=== PATIENT | female | born 1940 | race Caucasian/White ===

== ENCOUNTER 2016-04-21 10:30 | Day surgery (SDC) | payer MEDICARE, BC ==
[2016-04-16 11:52] VITALS: BMI 24.5
[2016-04-21] MEDS ORDERED: ceFAZolin 2 GM in SODIUM CHLORIDE 0.9% 100 ML IVPB ONE (10:34)
[2016-04-21] MEDS ORDERED: SODIUM CHLORIDE 0.9% 1,000 ML IV SCH (10:34)
[2016-04-21 11:18] VITALS: RESP 18
[2016-04-21] MEDS ORDERED: fentaNYL (PF) 50 MCG/ML 2 ML AMP IV ONE (12:30)
[2016-04-21] MEDS ORDERED: LIDOCAINE 2% INJ 20 MG/ML SQ ONE (12:30)
[2016-04-21] MEDS ORDERED: ceFAZolin 1,000 MG/50 ML BAG (PMX) IVPB ONE (12:30)
[2016-04-21] MEDS ORDERED: ACETAMINOPHEN TAB 325 MG TAB PO PRN (12:40)
--- NOTE | 2016-04-21 12:46 | P.PCN ---
Date of Procedure: 04/21/16 Preoperative Diagnosis: unexplained syncope Postoperative Diagnosis: The same Procedure(s) Performed: Loop recorder insertion Description of Procedure: This is a 75-year-old female is referred for loop recorder insertion for unexplained syncope. Patient was brought to the lab in a fasting state. She was prepped and draped in the usual fashion. She was given IV fentanyl for sedation. The skin and the fourth intercostal space on the left side was infiltrated with lidocaine. A small incision was made in the skin and reveal XT device was advanced in the usual fashion. Patient tolerated the procedure well. The signal strength was adequate. No immediate complications. The patient remains stable she'll be discharged home in couple hours. Programming: The tachycardia detection is programmed to a rate of 1 54 bpm. The Jorge detection is programmed to 30 beats per minutes the duration of 4 beats. Pauses of 3 seconds or longer programmed for detection. If detection is on. The sensitivity is programmed to 0.035 mV. Final impression: Successful implantation of the reveal XT Plan: Patient will be discharged home later today. Follow-up in the office in one week. Patient will keep the incision dry. She will continue her home medications. Follow-up with Dr. Jones.
[2016-04-21 13:13] VITALS: PULSE 88; TEMP 98.4
[2016-04-21 14:18] VITALS: BP 151/80
== END 2016-04-21 13:40 | disposition home or self-care (01) ==
LOC: CATHEP 10:30
PROVIDERS: ATTEND Internal Medicine Cardiovascular Disease
DX: R55 Syncope and collapse (principal); I10 Essential (primary) hypertension; E78.5 Hyperlipidemia, unspecified; Z79.82 Long term (current) use of aspirin; Z79.899 Other long term (current) drug therapy; Z88.7 Allergy status to serum and vaccine
CPT/HCPCS: 33282; C1764; J2001; J3010; J0690

== ENCOUNTER → 2016-05-21 | Outpatient (CLI) | payer MEDICARE, BC ==
[2016-05-21 11:02] LABS: Anion Gap 15 mmol/L; Blood Urea Nitrogen 17 mg/dL (7-17); Carbon Dioxide 27 mmol/L (22-30); Chloride 105 mmol/L (98-107); Non-African American GFR(MDRD) >60 (>60 ml/min/1.73 sqM); Potassium 4.3 mmol/L (3.5-5.1); Sodium 147 mmol/L (137-145)
[2016-05-21 14:11] LABS: CH 28.4; CHCM 30.6; HCT 52.1 % (34.0-46.0); HDW 2.33; HGB 16.1 gm/dL (11.4-16.0); Hypochromasia Slight; MCH 28.8 pg (25.0-35.0); Mean Platelet Volume 8.2; RDW 13.2 % (11.5-15.5); WBC 6.4 k/uL (3.8-10.6)
== END | disposition home or self-care (01) ==
LOC: LABPAT 10:15
PROVIDERS: ATTEND Internal Medicine Cardiovascular Disease
DX: Z01.812 Encounter for preprocedural laboratory examination (principal); I49.5 Sick sinus syndrome
CPT/HCPCS: 80051; 82565; 84520; 85027

== ENCOUNTER 2016-05-25 06:10 | Day surgery (SDC) | payer MEDICARE, BC ==
[2016-05-22 09:44] VITALS: BMI 24.5
[2016-05-25] MEDS ORDERED: ceFAZolin 2 GM in SODIUM CHLORIDE 0.9% 100 ML IVPB ONE (07:13)
[2016-05-25] MEDS ORDERED: ceFAZolin 1,000 MG in SODIUM CHLORIDE 0.9% IRRIGATIO 250 ML IRRIGATION ONE (07:13)
[2016-05-25] MEDS ORDERED: SODIUM CHLORIDE 0.9% 1,000 ML IV SCH (07:13)
[2016-05-25] MEDS ORDERED: IODIXANOL 320 MG/ML 100 ML IV ONE (07:46)
[2016-05-25] MEDS: fentaNYL (PF) 50 MCG/ML 2 ML AMP IV ONE ×2 (10:40→10:54)
[2016-05-25] MEDS: MIDAZOLAM 2 MG/2 ML VIAL IV ONE ×2 (10:41→10:50)
[2016-05-25] MEDS ORDERED: LIDOCAINE 2% INJ 20 MG/ML SQ ONE ×2 (10:42→10:52)
[2016-05-25] MEDS ORDERED: ACETAMINOPHEN TAB 325 MG TAB PO PRN (11:29)
[2016-05-25] MEDS ORDERED: MECLIZINE 25 MG TAB PO PRN (11:29)
[2016-05-25] MEDS ORDERED: ERGOCALCIFEROL 50,000 UNIT CAP PO SCH (12:00)
--- NOTE | 2016-05-25 12:59 | P.PCN ---
Date of Procedure: 05/25/16 Preoperative Diagnosis: Sick sinus syndrome with history of syncope Postoperative Diagnosis: The same Procedure(s) Performed: Axillary venography and permanent pacemaker implantation, dual-chamber Description of Procedure: HISTORY: This is a 75-year-old female with history of recurrent syncopes which were unexplained. Recently patient had a loop recorder insertion which showed evidence of SVT alternating with bradycardia and pauses up to 3.5 seconds. 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 Patient is evaluated by Dr. Jones. CONSENT:I have discussed the risks, benefits and alternative therapies for the above-mentioned procedure and for both sedation/analgesia as well as necessary blood product administration, if indicated, as they pertain to this patient. The patient has indicated understanding and acceptance of the risks and procedures discussed. PROCEDURE: Patient was brought to the lab in a fasting state. Patient was prepped and draped in the usual fashion. Patient was given IV sedation with fentanyl and Versed. The skin below the left clavicle was infiltrated with lidocaine. An incision was made parallel to deltopectoral groove was deepened until the pectoral fascia was exposed. A pocket was created by blunt dissection and cautery. Axillary venography was performed to delineate the course of the axillary vein. 2 sticks were performed into extrathoracic portion of the axillary vein and 2 sheaths were advanced over the guidewires and left in subclavian vein. LEADS: ATRIAL: This is manufactured by [employer]. Model number is 4479 and serial number is [id number] VENTRICULAR: This is manufactured by [employer]. Model number is 7741 and the serial number is [id number] PULSE GENERATOR: This is manufactured by [employer]. Model number L101. Serial number is [id number] The ventricular lead is maneuvered l with help of a straight and curved stylets into the left ventricle apical region. Satisfactory position was obtained and threshold measurements were made. The atrial lead was then maneuvered into the right atrial appendage. And thresholds were obtained. The ventricular lead is a screw-in lead and atrial lead is a tined lead. THRESHOLDS: ATRIUM: The minimum patient threshold is 0.3 V at pulse width of 0.5 ms. Impedance is 464 ohms. P-wave: 3.1 mV VENTRICLE Nu the minimal patient threshold is 0.4 holes at pulse width of 0.5 ms. Impedance was 1303. R-wave: 10 mV The leads and pulse generator remained in the pocket after it was washed with antibiotics. Pocket was closed in the usual fashion. The fascia was closed with 2-0 Prolene ,the subcutaneous tissue was closed with 3-0 Prolene and the skin was closed with 4-0 Prolene. PROGRAMMING: MODE: DDDR RATE: 60-120 OUTPUT: Atrium: 3.5 at 0.5 ms ventricle: 3.5 V at 0.5 ms FINAL IMPRESSION: #1. Axillary venography #2. Dual-chamber permanent pacemaker implantation COMPLICATIONS: Nil PLAN: Patient will be monitored on the telemetry unit. Prophylactic antibacterial be continued. Chest x-ray in the morning. Pneumonia the loop recorder tomorrow and possible discharge in the afternoon.
[2016-05-25] MEDS: ceFAZolin 2 GM in SODIUM CHLORIDE 0.9% 100 ML IVPB SCH ×2 (16:30→23:19)
[2016-05-25] MEDS: HYDROcodone/APAP 5-325MG 1 EACH TAB PO PRN (18:53)
[2016-05-25] MEDS ORDERED: PANTOPRAZOLE 40 MG TABLET PO SCH (21:00)
[2016-05-26] MEDS: ceFAZolin 2 GM in SODIUM CHLORIDE 0.9% 100 ML IVPB SCH ×2 (05:18→12:25)
[2016-05-26] MEDS: HYDROcodone/APAP 5-325MG 1 EACH TAB PO PRN (05:20)
[2016-05-26 08:24] VITALS: RESP 18
[2016-05-26] MEDS ORDERED: OXYBUTYNIN XL 5 MG TAB.ER.24 PO SCH (09:00)
[2016-05-26] MEDS ORDERED: ATENOLOL 25 MG TAB PO SCH (09:00)
[2016-05-26] MEDS ORDERED: DONEPEZIL 10 MG TAB PO SCH (09:00)
[2016-05-26] MEDS ORDERED: ATORVASTATIN 10 MG TAB PO SCH (09:00)
--- NOTE | 2016-05-26 09:32 | XR ---
EXAMINATION TYPE: XR chest 2V DATE OF EXAM: 05/26/2016 9:27 AM COMPARISON: Chest x-ray March 01, 2016. HISTORY: Arrhythmia status post pacemaker placement. TECHNIQUE: Frontal and lateral views of the chest are obtained. FINDINGS: There is chronic parenchymal change or scarring in both lung bases without suspicious new focal air space opacity, pleural effusion, or pneumothorax seen. The cardiac silhouette size is stab le and within normal limits. There is new dual lead pacemaker with leads projecting over right atrium and right ventricle. There is atherosclerotic and ectatic thoracic aorta. New loop recorder in the left anterior mid chest wall is present. The osseous structures are somewhat demineralized. IMPRESSION: New dual lead pacemaker with leads in right atrium and right ventricle. No evidence of p neumothorax or other complication.
[2016-05-26 12:13] VITALS: BP 126/75; PULSE 69; TEMP 98.8
== END 2016-05-26 13:52 | disposition home or self-care (01) ==
LOC: CATHEP 06:10 → 3OBS 11:28 → CATHEP 05-26 13:52
PROVIDERS: ATTEND Internal Medicine Cardiovascular Disease
DX: I49.5 Sick sinus syndrome (principal); E78.5 Hyperlipidemia, unspecified; I10 Essential (primary) hypertension; Z79.82 Long term (current) use of aspirin; Z79.899 Other long term (current) drug therapy; Z88.7 Allergy status to serum and vaccine; R55 Syncope and collapse
CPT/HCPCS: 99156; 99157 ×2; 33208; 71020; C1898 ×2; C1785; J2001; J2250; Q9967; J0690 ×3; J3010

== ENCOUNTER → 2016-06-11 | Outpatient (CLI) | payer MEDICARE, BC ==
--- NOTE | 2016-06-11 13:32 | XR ---
EXAMINATION TYPE: XR chest 2V DATE OF EXAM: 06/11/2016 1:21 PM COMPARISON: 05/26/2016 HISTORY: Shortness of breath TECHNIQUE: Frontal and lateral views of the chest are obtained. FINDINGS: Scattered senescent parenchymal changes noted. Hyperinflation compatible with COPD. No evidence for infiltrate. No evidence for atelectasis. Heart size is stable. Mediastinal structures are stable and grossly unremarkable. No evidence for hilar prominence. Degenerative changes dorsal spine. IMPRESSION: 1. No evidence for acute pulmonary disease.
== END | disposition home or self-care (01) ==
LOC: RADXRMAIN 13:06
PROVIDERS: ATTEND Internal Medicine Cardiovascular Disease
DX: I49.5 Sick sinus syndrome (principal)
CPT/HCPCS: 71020

== ENCOUNTER 2016-07-16 10:02 | Day surgery (SDC) | payer MEDICARE, BC ==
[2016-07-15 13:00] VITALS: BMI 23.0
[~2016-07-16 10:02] MED LIST: SODIUM CHLORIDE 0.9% 1,000 ML IV SCH; ceFAZolin 2 GM in SODIUM CHLORIDE 0.9% 100 ML IVPB ONE
[2016-07-16 10:30] VITALS: RESP 18
[2016-07-16] MEDS ORDERED: fentaNYL (PF) 50 MCG/ML 2 ML AMP IV ONE (11:43)
[2016-07-16] MEDS ORDERED: LIDOCAINE 2% INJ 20 MG/ML SQ ONE (11:47)
[2016-07-16] MEDS ORDERED: ACETAMINOPHEN TAB 325 MG TAB PO PRN (11:54)
--- NOTE | 2016-07-16 11:58 | P.PCN ---
Date of Procedure: 07/16/16 Preoperative Diagnosis: Status post loop recorder insertion Postoperative Diagnosis: Removal of loop recorder Procedure(s) Performed: Removal of the loop recorder Description of Procedure: REMOVAL OF THE LOOP RECORDER: This patient had a loop recorder insertion for evaluation of syncope. She was found to have significant pauses and subsequently had a permanent pacemaker. She was brought in electively for removal of loop recorder. Patient was given IV fentanyl 25 mg for sedation. She was prepped and draped in the usual fashion. She was given prophylactic antibiotic. The skin over the medial end of the device was infiltrated with lidocaine. An incision was made in the loop recorder was pulled out . 2 stay sutures with silk were applied applied for closure of the incision. Patient tolerated the procedure well. Dressing was applied. Plan: Patient will be discharged home in 2-3 hours. Patient is instructed to keep the area dry. Follow-up in the office in one week
[2016-07-16 14:44] VITALS: PULSE 72
[2016-07-16 14:49] VITALS: BP 158/82; TEMP 97.8
== END 2016-07-16 13:45 | disposition home or self-care (01) ==
LOC: CATHEP 10:02
PROVIDERS: ATTEND Internal Medicine Cardiovascular Disease
DX: Z45.09 Encounter for adjustment and management of other cardiac device (principal); I10 Essential (primary) hypertension; Z95.0 Presence of cardiac pacemaker; E78.5 Hyperlipidemia, unspecified; E03.9 Hypothyroidism, unspecified; E78.00 Pure hypercholesterolemia, unspecified; Z79.82 Long term (current) use of aspirin; Z79.899 Other long term (current) drug therapy; Z88.7 Allergy status to serum and vaccine
CPT/HCPCS: 33284; J2001; J0690; J3010

== ENCOUNTER → 2016-08-19 | Outpatient (CLI) | payer MEDICARE, BC ==
--- NOTE | 2016-08-19 11:42 | MM ---
Reason for exam: additional evaluation requested from prior study. Last mammogram was performed 1 year ago. History: Patient is postmenopausal, has history of endometrial cancer at age 63, and has history of breast cancer at age 58. Benign stereotactic core biopsy of the left breast, December 23, 1998. Benign stereotactic core biopsy of the left breast, December 23, 1998. Benign lumpectomy of the left breast, October 15, 1998. Benign stereotactic core biopsy of the left breast, October 01, 1998. Benign stereotactic core biopsy of the right breast, September 26, 1998. Core biopsy of the left breast. Core biopsy of the right breast. 2 excisional biopsies of the left breast. 2 radiation therapies of the left breast. Took estrogen for 6 years beginning at age 53. Physical Findings: Nurse did not find any significant physical abnormalities on exam. MG 3D Diag Mammo W/Cad SAMIR Bilateral CC and MLO view(s) were taken. Spot compression MLO view(s) were taken of the right breast. XCCL view(s) were taken of the left breast. Prior study comparison: August 19, 2015, bilateral MG 3d diag mammo w/cad SAMIR. August 14, 2014, bilateral MG diagnostic mammo w CAD SAMIR. Finding: There are typically benign calcifications in both breasts. Previous mammotome biopsy in the right breast. No significant changes in finding since August 19, 2015 and August 14, 2014. These results were verbally communicated with the patient and result sheet given to the patient on 08/19/16. ASSESSMENT: Benign, BI-RAD 2 RECOMMENDATION: Follow-up diagnostic mammogram of both breasts in 1 year.
== END | disposition home or self-care (01) ==
LOC: RADMAMWWP 09:47
PROVIDERS: ATTEND Internal Medicine Hematology & Oncology
DX: Z85.3 Personal history of malignant neoplasm of breast (principal)
CPT/HCPCS: G0204; G0279

== ENCOUNTER 2016-12-13 17:16 | Emergency (ER) | payer MEDICARE, BC ==
[2016-12-13 17:35] VITALS: RESP 18
[2016-12-13] MEDS ORDERED: SODIUM CHLORIDE 0.9% 500 ML IV STA (18:20)
[2016-12-13] MEDS ORDERED: RX INFO: IV CONTRAST WAS GIVEN 1 EACH MISC MISCELLANE PRN (18:20)
--- NOTE | 2016-12-13 18:26 | ED ---
General Adult HPI - General Chief complaint: ENT Stated complaint: lost vision in rt eye Time Seen by Provider: 12/13/16 17:32 Source: patient, RN notes reviewed Mode of arrival: wheelchair Limitations: no limitations - History of Present Illness Initial comments: 76-year-old female presents to the emergency department with a chief complaint of unable to see out of the right eye. Patient states this happened on the first of the month. Patient states she has black vision every once a while to get a flash of light. Patient states she cannot see anything except for black out of that eye. Patient states there is no pain. Patient has a redness and drainage any injury to the eye. Patient denies any history of this in the past. Patient states when she lost the vision she was unable to see out of the eye. Again. Patient denies any history of this in the past. Patient states that the other eye she has no changes in vision.Patient denies any recent fever , chills, shortness of breath, chest pain, back pain, abdominal pain, nausea vomiting, numbness or tingling, dysuria or hematuria, constipation or diarrhea, headaches or visual changes, or any other current symptoms. - Related Data Home Medications Medication Instructions Recorded Confirmed Aspirin [Adult Low Dose Aspirin EC] 81 mg PO HS 03/13/15 12/13/16 Atenolol 25 mg PO QAM 03/13/15 12/13/16 Donepezil HCl 10 mg PO QAM 03/13/15 12/13/16 Omeprazole 20 mg PO HS 03/13/15 12/13/16 Simvastatin 20 mg PO QAM 03/13/15 12/13/16 Tolterodine ER [Detrol LA] 4 mg PO QAM 03/13/15 12/13/16 Ergocalciferol (Vitamin D2) 50,000 unit PO MO 05/22/16 12/13/16 [Vitamin D2] Allergies Allergy/AdvReac Type Severity Reaction Status Date / Time influenza virus vaccine, Allergy Rash/Hives Verified 12/13/16 19:51 specific [influenza virus vacc,specific] Penicillins Allergy Rash/Hives Verified 12/13/16 19:51 Review of Systems ROS Statement: Those systems with pertinent positive or pertinent negative responses have been documented in the HPI. ROS Other: All systems not noted in ROS Statement are negative. Past Medical History Past Medical History: Cancer, GERD/Reflux, Hyperlipidemia, Hypertension, Syncope Additional Past Medical History / Comment(s): HX LT BREAST CA. PAST HX OF SYNCOPE, STATES MEMORY PROBLEMS History of Any Multi-Drug Resistant Organisms: None Reported Past Surgical History: AICD, Breast Surgery, Section, Hysterectomy, Tonsillectomy Additional Past Surgical History / Comment(s): C-S X3. LT BREAST LUMPECTOMY. Past Anesthesia/Blood Transfusion Reactions: No Reported Reaction Type of Cardiac Device: Permanent Pacemaker Device Placement Date:: 05-25-16 [employer] Past Psychological History: No Psychological Hx Reported Smoking Status: Never smoker Past Alcohol Use History: None Reported Past Drug Use History: None Reported - Past Family History Father History Unknown: Yes Family Medical History: Eye Disorder Mother History Unknown: Yes Family Medical History: No Reported History General Exam Limitations: no limitations General appearance: alert, in no apparent distress Head exam: Present: atraumatic, normocephalic, normal inspection Eye exam: Present: normal appearance, EOMI, other (Left pupil equal and reactive to light right pupil does react when light is shined left eye but does not react to light shined into the right eye nor does the left pupil reacts minimally shined into the right eye). Absent: scleral icterus, conjunctival injection, periorbital swelling, periorbital tenderness ENT exam: Present: normal exam, mucous membranes moist Neck exam: Present: normal inspection. Absent: tenderness, meningismus, lymphadenopathy Respiratory exam: Present: normal lung sounds bilaterally. Absent: respiratory distress, wheezes, rales, rhonchi, stridor Cardiovascular Exam: Present: regular rate, normal rhythm, normal heart sounds. Absent: systolic murmur, diastolic murmur, rubs, gallop, clicks Neurological exam: Present: alert, oriented X3 Psychiatric exam: Present: normal affect, normal mood Skin exam: Present: warm, dry, intact, normal color. Absent: rash Course Vital Signs 12/13/16 12/13/16 17:32 20:04 Temperature 97.7 F 98.3 F Pulse Rate 73 68 Respiratory 18 18 Rate Blood Pressure 175/80 185/88 O2 Sat by Pulse 96 97 Oximetry Medical Decision Making - Medical Decision Making 76-year-old female presents to the emergency Department chief complaint of complete vision loss to the right eye. THis has been consistent for 3 days. At this time we did not have ophthalmology on-call and I contacted the chief of internal medicine on-call, Dr. Pandey he stated he would like an ESR checked and if this is normal the patient is good for follow-up this week in the area. Patient's ESR is reviewed and negative. This time the patient will be discharged home. We discussed follow-up with ophthalmology. We did discuss return parameters with family. We did discuss that most likely she'll never see out of the right eye again they stated they understood. This time they will be discharged home. - Lab Data Result diagrams: 12/13/16 18:35 12/13/16 18:35 Lab Results 12/13/16 12/13/16 12/13/16 Range/Units 18:35 18:35 18:35 WBC 6.4 (3.8-10.6) k/uL RBC 5.02 (3.80-5.40) m/uL Hgb 15.0 (11.4-16.0) gm/dL Hct 45.0 (34.0-46.0) % MCV 89.6 (80.0-100.0) fL MCH 30.0 (25.0-35.0) pg MCHC 33.4 (31.0-37.0) g/dL RDW 13.2 (11.5-15.5) % Plt Count 192 (150-450) k/uL Neutrophils % 60 % Lymphocytes % 25 % Monocytes % 11 % Eosinophils % 2 % Basophils % 0 % Neutrophils # 3.8 (1.3-7.7) k/uL Lymphocytes # 1.6 (1.0-4.8) k/uL Monocytes # 0.7 (0-1.0) k/uL Eosinophils # 0.1 (0-0.7) k/uL Basophils # 0.0 (0-0.2) k/uL ESR 5 (0-20) mm/hr Sodium 143 (137-145) mmol/L Potassium 4.0 (3.5-5.1) mmol/L Chloride 106 (98-107) mmol/L Carbon Dioxide 27 (22-30) mmol/L Anion Gap 10 mmol/L BUN 19 H (7-17) mg/dL Creatinine 0.70 (0.52-1.04) mg/dL Est GFR (MDRD) Af Amer >60 (>60 ml/min/1.73 sqM) Est GFR (MDRD) Non-Af >60 (>60 ml/min/1.73 sqM) Glucose 104 H (74-99) mg/dL Calcium 9.8 (8.4-10.2) mg/dL Total Bilirubin 0.3 (0.2-1.3) mg/dL AST 22 (14-36) U/L ALT 28 (9-52) U/L Alkaline Phosphatase 77 (38-126) U/L Total Protein 7.2 (6.3-8.2) g/dL Albumin 4.0 (3.5-5.0) g/dL - Radiology Data Radiology results: report reviewed, image reviewed Disposition Clinical Impression: Vision loss, right eye Disposition: HOME SELF-CARE Condition: Stable Instructions: Blurred Vision (ED) Additional Instructions: Please use medication as discussed. Please follow up with family doctor if symptoms have not improved over the next two days. Please return to the emergency room if your symptoms increase or worsen or for any other concerns. Referrals: Edwin Frausto DO [Primary Care Provider] - 1-2 days Andrea Babcock MD [STAFF PHYSICIAN] - 1-2 days Mika Cerrato MD [STAFF PHYSICIAN] - 1-2 days Time of Disposition: 21:57
[2016-12-13 18:51] LABS: Basophils % (A) 0 %; CH 29.2; CHCM 32.8; Eosinophils # (A) 0.1 k/uL (0-0.7); Eosinophils % (A) 2 %; HDW 2.42; Luc # (Auto) 0.13; Luc % (Auto) 2; Lymphocytes # (A) 1.6 k/uL (1.0-4.8); Lymphocytes % (A) 25 %; MCHC 33.4 g/dL (31.0-37.0); MCV 89.6 fL (80.0-100.0); Mean Platelet Volume 7.7; Monocytes # (A) 0.7 k/uL (0-1.0); Monocytes % (A) 11 %; Neutrophils # (A) 3.8 k/uL (1.3-7.7); Neutrophils % (A) 60 %; RBC 5.02 m/uL (3.80-5.40); RDW 13.2 % (11.5-15.5); WBC 6.4 k/uL (3.8-10.6); WBC (Perox) 6.14
[2016-12-13 19:13] LABS: ALT 28 U/L (9-52); AST 22 U/L (14-36); Alkaline Phosphatase 77 U/L (38-126); Anion Gap 10 mmol/L; Blood Urea Nitrogen 19 mg/dL (7-17); Calcium 9.8 mg/dL (8.4-10.2); Carbon Dioxide 27 mmol/L (22-30); Chloride 106 mmol/L (98-107); Glucose 104 mg/dL (74-99); Non-African American GFR(MDRD) >60 (>60 ml/min/1.73 sqM); Sodium 143 mmol/L (137-145); Total Bilirubin 0.3 mg/dL (0.2-1.3); Total Protein 7.2 g/dL (6.3-8.2)
[2016-12-13 20:05] VITALS: BP 185/88; PULSE 68; TEMP 98.3
--- NOTE | 2016-12-13 20:15 | CT ---
EXAMINATION TYPE: CT brain wo con DATE OF EXAM: 12/13/2016 COMPARISON: 05/25/2015 INDICATION: Patient complains of right eye blindness. DLP: 785.6 mGycm, Automated exposure control for dose reduction was used. CONTRAST: None CT of the brain is performed utilizing 3 mm thick sections through the posterior fossa and 3 mm thick sections through the remaining calvarium. Study is performed within 24 hours of arrival to the hosp ital. No abnormal hyperdensity is present to suggest an acute intracranial hemorrhage. No mass lesion is evident. No acute infarcts are evident. There is hypodensity in the periventricular white matter, compatible w ith microvascular ischemic changes. Ventricles and sulci are slightly prominent for the patient age. Paranasal sinuses and mastoid air cells within the [id number] are clear. IMPRESSIONS: 1. Atrophy with periventricular white matter ischemic changes.
--- NOTE | 2016-12-13 20:20 | CT ---
EXAMINATION TYPE: CT orbits w con DATE OF EXAM: 12/13/2016 COMPARISON: NONE HISTORY: Patient complains of right eye blindness. CT DLP: 142.7 mGycm Automated exposure control for dose reduction was used. CONTRAST: Performed with IV Contrast, patient injected with 100 mL of Omnipaque 300. FINDINGS: Globes are symmetrical. Optic nerves are unremarkable. Intraconal and extraconal fat is normal. Super ior ophthalmic veins are unremarkable. No abnormal enhancement is evident. Soft tissues are normal. N greyson bones are intact. Greater wings of sphenoid are normal. Zygomatic arches are normal. Septum is l eft of midline. Ostiomeatal units are patent. No abnormality of the right orbit is identified. IMPRESSION: NORMAL ORBITAL CT
== END 2016-12-13 22:06 | disposition home or self-care (01) ==
LOC: EC 17:16
DX: H54.61 Unqualified visual loss, right eye, normal vision left eye (principal); E78.5 Hyperlipidemia, unspecified; I10 Essential (primary) hypertension; K21.9 Gastro-esophageal reflux disease without esophagitis; Z85.3 Personal history of malignant neoplasm of breast; Z83.518 Family history of other specified eye disorder; Z88.7 Allergy status to serum and vaccine; Z88.0 Allergy status to penicillin; Z79.82 Long term (current) use of aspirin; Z79.899 Other long term (current) drug therapy
CPT/HCPCS: 36415; 80053; 85652; 85025; 70450; 70481; 99284; 96360; Q9967

== ENCOUNTER → 2017-01-04 | Outpatient (CLI) | payer MEDICARE, BC ==
[2017-01-04 12:07] LABS: Blood Urea Nitrogen 17 mg/dL (7-17); Non-African American GFR(MDRD) >60 (>60 ml/min/1.73 sqM)
== END ==
LOC: LABWHC1 11:27
PROVIDERS: ATTEND Psychiatry & Neurology Neurology
DX: H54.61 Unqualified visual loss, right eye, normal vision left eye (principal)
CPT/HCPCS: 36415; 82565; 84520

== ENCOUNTER → 2017-01-07 | Outpatient (CLI) | payer MEDICARE, BC ==
--- NOTE | 2017-01-07 09:55 | US ---
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 No HTN, some dizziness. TECHNIQUE: Carotid duplex ultrasound examination. Indirect Doppler criteria was utilized. FINDINGS: Black scale images show mild atherosclerotic changes at the bifurcations. EXAM MEASUREMENTS: RIGHT: Peak Systolic Velocity (PSV) cm/sec ----- Right CCA: 58.4 ----- Right ICA: 74.6 ----- Right ECA: 60.1 ICA/CCA ratio: 1.3 RIGHT: End Diastole cm/sec ----- Right CCA: 10.4 ----- Right ICA: 23.0 ----- Right ECA: 0.0 LEFT: Peak Systolic Velocity (PSV) cm/sec ----- Left CCA: 58.4 ----- Left ICA: 61.9 ----- Left ECA: 58.4 ICA/CCA ratio: 1.1 LEFT: End Diastole cm/sec ----- Left CCA: 12.1 ----- Left ICA: 17.4 ----- Left ECA: 6.0 VERTEBRALS (direction of flow): Right Vertebral: Antegrade Left Vertebral: Antegrade Rhythm: Normal IMPRESSION: No hemodynamically significant stenosis appreciated in either internal carotid artery. Criteria for Assigning % of Stenosis / Diameter reduction (Estimation based on the indirect measurements of the internal carotid artery velocities (ICA PSV). 1. Normal (no stenosis)=ICA PSV < 125 cm/s: ratio < 2.0: ICA EDV<40 cm/s. 2. Less than 50% stenosis=ICA PSV < 125 cm/s: ratio < 2.0: ICA EDV<40 cm/s. 3. 50 to 69% stenosis=ICA PSV of 125 to 230 cm/s: ration 2.0 ? 4.0: ICA EDV 40-100 cm/s. 4. Greater than 70% stenosis to near occlusion= ICA PSV > 230 cm/s: ratio > 4.0: ICA EDV > 100 cm/s. 5. Near occlusion= ICA PSV velocities may be low or undetectable: variable ratio and ICA EDV. 6. Total occlusion=unable to detect flow.
--- NOTE | 2017-01-08 09:59 | ECHOF ---
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 This was a technically adequate study. The left ventricular size is normal. There is mild concentric left ventricular hypertrophy. Overall left ventricular systolic function is normal with, an EF between 55 - 60 %. The right ventricle is normal in size and function. Normal LA size by volume 22+/-6 ml/m2. The right atrium is normal in size. Electronic pacemaker lead seen in the right atrial cavity. Aortic valve is trileaflet and is mildly thickened. Trace to mild aortic regurgitation. There is no evidence of aortic stenosis. The mitral valve leaflets are mildly thickened. There is trace mitral regurgitation. Trace tricuspid regurgitation present. Right ventricular systolic pressure is normal at < 35 mmHg. There is no evidence of pulmonary hypertension. The pulmonic valve was not well visualized. The aortic root size is normal. Normal inferior vena cava with normal inspiratory collapse consistent with estimated right atrial pressure of 5 mmHg. The pericardium is normal. There is no pericardial effusion. CONCLUSIONS -------- 1. Sinus rhythm. 2. The mitral valve leaflets are mildly thickened. 3. There is trace mitral regurgitation. 4. Trace tricuspid regurgitation present. 5. Right ventricular systolic pressure is normal at < 35 mmHg. 6. There is no evidence of pulmonary hypertension. 7. The pulmonic valve was not well visualized. 8. The aortic root size is normal. 9. There is no pericardial effusion. 10. This was a technically adequate study. 11. The left ventricular size is normal. 12. There is mild concentric left ventricular hypertrophy. 13. Overall left ventricular systolic function is normal with, an EF between 55 - 60 %. 14. Normal LA size by volume 22+/-6 ml/m2. 15. Electronic pacemaker lead seen in the right atrial cavity. 16. Aortic valve is trileaflet and is mildly thickened. 17. Trace to mild aortic regurgitation. [place]: Abner Patterson RDCS
== END | disposition home or self-care (01) ==
LOC: RADUSMAIN 09:04
PROVIDERS: ATTEND Family Medicine
DX: I35.1 Nonrheumatic aortic (valve) insufficiency (principal); I51.7 Cardiomegaly; H34.13 Central retinal artery occlusion, bilateral
CPT/HCPCS: 93306; 93880

== ENCOUNTER → 2017-01-18 | Outpatient (CLI) | payer MEDICARE, BC ==
--- NOTE | 2017-01-18 11:15 | MR ---
EXAMINATION TYPE: MR angio head wo con DATE OF EXAM: 01/18/2017 COMPARISON: 08/01/2014 HISTORY: brain tumor, loss of vision, cerebral aneurysm TECHNIQUE: Utilizing 3-D [id number] intracranial MRA of [place] was performed. FINDINGS: The vertebrobasilar and carotid systems are patent. There is no sizable aneurysm or vascular malform ation. Tortuosity of the distal left vertebral artery noted. Vertebral arteries are symmetric in size . There is a patent right-sided posterior communicating artery. 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 There are members of mild dilation measuring 2.8 mm. IMPRESSION: 1. Overall stable findings, no new aneurysm is evident. 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 .
--- NOTE | 2017-01-18 11:22 | MR ---
EXAMINATION TYPE: MR brain wo/w con DATE OF EXAM: 01/18/2017 COMPARISON: 04/02/2016 HISTORY: brain tumor, loss of vision, cerebral aneurysm TECHNIQUE: Multiplanar, multisequence images of the brain and brainstem is performed without and with IV contras t, utilizing 6 mL intravenous Gadavist . FINDINGS: Diffusion weighted images demonstrate no evidence of a recent infarct or other diffusion ab normality. There is no extra-axial fluid collection or significant white matter signal abnormality. The ventricular system and cisternal spaces are normal in size and appearance. The brain volume is age appropriate. Midline structures demonstrate normal morphology. The craniocervical junction appears within normal limits. Post contrast images demonstrate no abnormal enhancement. Biif-vs-umvddomy generalized degenerative change noted. Diffuse white matter changes are stable. IMPRESSION: 1. 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
== END | disposition home or self-care (01) ==
LOC: RADMRIMAIN 09:45
PROVIDERS: ATTEND Psychiatry & Neurology Neurology
DX: I67.82 Cerebral ischemia (principal); G45.2 Multiple and bilateral precerebral artery syndromes; D43.2 Neoplasm of uncertain behavior of brain, unspecified; I67.1 Cerebral aneurysm, nonruptured
CPT/HCPCS: 70544; 70553; A9581

== ENCOUNTER → 2017-05-14 | Outpatient (CLI) | payer MEDICARE, BC ==
--- NOTE | 2017-05-14 16:08 | US ---
EXAMINATION TYPE: US carotid duplex BILAT DATE OF EXAM: 05/14/2017 COMPARISON: CLINICAL HISTORY: I10 Hypertension E78.5 Hyperlipidemia. No hx of TIA EXAM MEASUREMENTS: RIGHT: Peak Systolic Velocity (PSV) cm/sec ----- Right CCA: 49.6 ----- Right ICA: 70.2 ----- Right ECA: 55.1 ICA/CCA ratio: 1.4 RIGHT: End Diastole cm/sec ----- Right CCA: 8.6 ----- Right ICA: 17.5 ----- Right ECA: 0.0 LEFT: Peak Systolic Velocity (PSV) cm/sec ----- Left CCA: 51.4 ----- Left ICA: 68.0 ----- Left ECA: 52.3 ICA/CCA ratio: 1.3 LEFT: End Diastole cm/sec ----- Left CCA: 9.5 ----- Left ICA: 19.1 ----- Left ECA: 0.0 VERTEBRALS (direction of flow): Right Vertebral: Antegrade Left Vertebral: Antegrade Rhythm: Normal Bilateral wall thickening. No significant stenosis or elevated velocities. Plaque seen in bilateral bulbs. IMPRESSION: Mild calcific and noncalcific grayscale atheromatous plaquing within the carotid bulbs. No hemodynamically significant stenosis within either carotid arterial system.
--- NOTE | 2017-05-15 08:19 | ECHOF ---
Referral Reason:I10 Hypertension E78.5 Hyperlipidema MEASUREMENTS -------- HEIGHT: 167.6 cm WEIGHT: 61.2 kg BP: RVIDd: 2.6 cm (< 3.3) IVSd: 0.8 cm (0.6 - 1.1) LVIDd: 4.4 cm (3.9 - 5.3) LVPWd: 1.0 cm (0.6 - 1.1) IVSs: 1.1 cm LVIDs: 2.8 cm LVPWs: 1.4 cm LAESV Index (A-L): 16.92 ml/m Ao Diam: 3.1 cm (2.0 - 3.7) AV Cusp: 1.9 cm (1.5 - 2.6) LA Diam: 2.8 cm (2.7 - 3.8) EPSS: 0.5 cm MV E Farrukh: 0.70 m/s MV DecT: 260 ms MV A Farrukh: 0.73 m/s MV E/A Ratio: 0.95 AV maxP.33 mmHg AV meanP.53 mmHg AR PHT: 579 ms RAP: 5.00 mmHg RVSP: 29.08 mmHg MV EF SLOPE: 49.49 mm/s (70 - 150) MV EXCURSION: 1.35 cm (> 18.000) FINDINGS -------- Sinus rhythm. This was a technically adequate study. The left ventricular size is normal. Left ventricular wall thickness is normal. Overall left vent ricular systolic function is normal with, an EF between 55 - 60 %. The right ventricle is normal in size and function. Normal LA size by volume 22+/-6 ml/m2. RA appears enlarged. There is mild aortic valve sclerosis. There is qvql-av-yuerftja aortic regurgitation. The aortic pressure half-time by doppler is 579ms. There is no evidence of aortic stenosis. The mitral valve leaflets are mildly thickened. There is trace mitral regurgitation. Trace tricuspid regurgitation present. Right ventricular systolic pressure is normal at < 35 mmHg. There is no evidence of pulmonary hypertension. The pulmonic valve is normal. The aortic root size is normal. Normal inferior vena cava with normal inspiratory collapse consistent with estimated right atrial pre ssure of 5 mmHg. The pericardium is normal. There is no pericardial effusion. CONCLUSIONS -------- 1. Sinus rhythm. 2. This was a technically adequate study. 3. The left ventricular size is normal. 4. Left ventricular wall thickness is normal. 5. Overall left ventricular systolic function is normal with, an EF between 55 - 60 %. 6. Normal LA size by volume 22+/-6 ml/m2. 7. RA appears enlarged. 8. There is mild aortic valve sclerosis. 9. There is hjtw-gw-eylozjiy aortic regurgitation. 10. The aortic pressure half-time by doppler is 579ms. 11. The mitral valve leaflets are mildly thickened. 12. There is trace mitral regurgitation. 13. Trace tricuspid regurgitation present. 14. Right ventricular systolic pressure is normal at < 35 mmHg. 15. There is no evidence of pulmonary hypertension. 16. The aortic root size is normal. 17. There is no pericardial effusion. FENDER MECHANIC: Abner Cortes RDCS
== END | disposition home or self-care (01) ==
LOC: RADECHMAIN 14:38
PROVIDERS: ATTEND Family Medicine
DX: I35.1 Nonrheumatic aortic (valve) insufficiency (principal); I35.8 Other nonrheumatic aortic valve disorders; I10 Essential (primary) hypertension; E78.5 Hyperlipidemia, unspecified
CPT/HCPCS: 93306; 93880

== ENCOUNTER → 2017-07-22 | Outpatient (CLI) | payer MEDICARE, BC ==
[2017-07-22 08:57] LABS: ALT 20 U/L (9-52); AST 29 U/L (14-36); Cholesterol 161 mg/dL (<200); HDL Cholesterol 58 mg/dL (40-60); LDL Cholesterol,Calculated 86 mg/dL (0-99); Triglycerides 85 mg/dL (<150)
== END | disposition home or self-care (01) ==
LOC: LABWHC1 07:32
PROVIDERS: ATTEND Nurse Practitioner Adult Health
DX: E78.2 Mixed hyperlipidemia (principal)
CPT/HCPCS: 36415; 80061; 84450; 84460

== ENCOUNTER → 2017-09-07 | Outpatient (CLI) | payer MEDICARE, BC ==
--- NOTE | 2017-09-07 10:55 | MM ---
Reason for exam: additional evaluation requested from prior study. Last mammogram was performed 1 year and 1 month ago. History: Patient is postmenopausal, has history of endometrial cancer at age 63, and has history of breast cancer at age 58. Benign stereotactic core biopsy of the left breast, December 23, 1998. Benign stereotactic core biopsy of the left breast, December 23, 1998. Benign lumpectomy of the left breast, October 15, 1998. Benign stereotactic core biopsy of the left breast, October 01, 1998. Benign stereotactic core biopsy of the right breast, September 26, 1998. Core biopsy of the left breast. Core biopsy of the right breast. 2 excisional biopsies of the left breast. Lumpectomy of the left breast. 3 radiation therapies of the left breast. Took estrogen for 6 years beginning at age 53. Physical Findings: Nurse did not find any significant physical abnormalities on exam. MG 3D Diag Mammo W/Cad SAMIR Bilateral CC and MLO view(s) were taken. Prior study comparison: August 19, 2016, bilateral MG 3d diag mammo w/cad SAMIR. August 19, 2015, bilateral MG 3d diag mammo w/cad SAMIR. The breast tissue is heterogeneously dense. This may lower the sensitivity of mammography. Stable benign calcifications. Stable post operative changes in the left breast. No significant new findings when compared with previous films. These results were verbally communicated with the patient and result sheet given to the patient on 09/07/17. ASSESSMENT: Benign, BI-RAD 2 RECOMMENDATION: Follow-up diagnostic mammogram of both breasts in 1 year.
== END | disposition home or self-care (01) ==
LOC: RADMAMWWP 08:44
PROVIDERS: ATTEND Internal Medicine Hematology & Oncology
DX: Z08 Encounter for follow-up examination after completed treatment for malignant neoplasm (principal); Z85.3 Personal history of malignant neoplasm of breast
CPT/HCPCS: 77066; G0279; 77062

== ENCOUNTER → 2018-11-07 | Outpatient (CLI) | payer MEDICARE, BC ==
--- NOTE | 2018-11-07 11:14 | XR ---
Right shoulder HISTORY: Right shoulder pain 3 views of the right shoulder Bone mineralization is mildly reduced. Hypertrophic change present at the acromioclavicular joint, di stal clavicle appears irregular. There is a distal acromial spur. No dislocation. Right lung apex as visualized is normal. Pacemaker wires are noted incidentally. IMPRESSION: Correlate for impingement. Suspect fracture distal clavicle.
== END | disposition home or self-care (01) ==
LOC: RADXRMAIN 10:37
PROVIDERS: ATTEND Family Medicine
DX: S40.011A Contusion of right shoulder, initial encounter (principal)

== ENCOUNTER 2018-12-07 07:37 | Day surgery (SDC) | payer MEDICARE, BC ==
[2018-12-02 11:39] VITALS: BMI 19.8
[~2018-12-07 07:37] MED LIST changes: +LACTATED RINGERS 1,000 ML IV SCH; +LIDOCAINE 1% 20 ML VIAL (10MG/ML) FOR IV START INTRADERMA PRN; +MIDAZOLAM 2 MG/2 ML VIAL IV PRN; +MOXIFLOXACIN HCL 0.5% DROPS 3 ML BTL OP ONE; -SODIUM CHLORIDE 0.9% 1,000 ML IV SCH; +TETRACAINE 0.5% OPHTH (PF) DROPS 4 ML BTL OP ONE; +TIMOLOL 0.5% OPHTH DROPS 5 ML BTL OP ONE; -ceFAZolin 2 GM in SODIUM CHLORIDE 0.9% 100 ML IVPB ONE
[2018-12-07] MEDS: CYCLOPENTOLATE 1% OPHTH SOLN 2 ML BTL OP ONE ×3 (08:35→08:45)
[2018-12-07] MEDS: PHENYLEPHRINE 2.5% OPHTH DRP 2ML OP NR ×3 (08:37→08:48)
[2018-12-07] MEDS ORDERED: ATENOLOL 25 MG TAB PO STA (08:51)
[2018-12-07] MEDS ORDERED: LACTATED RINGERS 1,000 ML IV ONE (08:53)
[2018-12-07 08:57] VITALS: RESP 18; TEMP 97.8
[2018-12-07] MEDS ORDERED: MIDAZOLAM 2 MG/2 ML VIAL ONE (09:18)
[2018-12-07] MEDS ORDERED: fentaNYL (PF) 50 MCG/ML 2 ML AMP ONE (09:18)
[2018-12-07] MEDS ORDERED: DUOVISC KIT (GREEN BOX) INTRAOCULA ONE (09:29)
[2018-12-07] MEDS ORDERED: LIDOCAINE 1% (PF) 10MG/ML VIAL SQ ONE (09:29)
[2018-12-07] MEDS ORDERED: BALANCED SALT IRRIG SOLN COMB2 15 ML IRRIG.SOLN INTRAOCULA ONE (09:29)
[2018-12-07] MEDS ORDERED: TRYPAN BLUE 0.06% SYRINGE 0.5 ML SYRINGE MISCELLANE ONE (09:30)
[2018-12-07] MEDS ORDERED: EPINEPHrine (PF) 0.3 ML in BALANCED SALT IRRIG SOLN COMB2 500 ML IRRIGATION ONE (09:32)
--- NOTE | 2018-12-07 09:55 | P.OP ---
Date of Procedure: 12/07/18 Preoperative Diagnosis: NS & CS & POAG Postoperative Diagnosis: same Procedure(s) Performed: PIOL, OD & goniotomy Implants: PCB00 20.50 Anesthesia: MAC Surgeon: Mika Cerrato Pathology: none sent Condition: stable Disposition: same day Indications for Procedure: blurry vision and glaucoma Operative Findings: no complications
[2018-12-07 10:09] VITALS: PULSE 82
[2018-12-07 10:29] VITALS: BP 171/93
--- NOTE | 2018-12-07 14:49 | OP ---
OPERATIVE REPORT DATE OF SURGERY: 12/07/2018. PROCEDURE: Phacoemulsification of cataract and intraocular lens implant with goniotomy of the right eye. PREOPERATIVE DIAGNOSES: 1. Nuclear sclerosis, cortical sclerosis. 2. Primary open-angle glaucoma, moderate stage. POSTOPERATIVE DIAGNOSES: 1. Nuclear sclerosis, cortical sclerosis. 2. Primary open-angle glaucoma, moderate stage. SURGEON: Dr. Mika Cerrato. ANESTHESIA: Topical. ESTIMATED BLOOD LOSS: Less than 5 mL. SPECIMEN: None. NARRATIVE: After obtaining the appropriate consent, the patient was brought to the operating room. There she was placed on cardiac monitoring, prepped and draped in the usual sterile manner. She was approached from her right temporal side and at the 11 o'clock position, a 20-gauge MVR blade was used to create a paracentesis port. Through this opening 1% Xylocaine MPF 50-50 mix of balanced salt solution was injected into the anterior chamber. This was followed by tri jefferson blue which was left in place for 1 minute. This was irrigated away and the anterior chamber was then stabilized with Viscoat. At the 9 o'clock position, a 2.5 mm keratome was used to create a self-sealing corneal flap incision. The patient was then asked to rotate her head approximately 45 degrees to her left. A small amount of Viscoat was placed on the patient's cornea and a gonadal prism placed on the eye. A core hook dual blade goniotomy knife was used to create a goniotomy using the joe and meet method. This was performed without any difficulty and some expected blood was formed along the area of Schlemm's canal. The patient was then rotated to the normal supine position. Using a cystotome, a continuous tear capsulorrhexis was begun, which was completed using the Utrata forceps. Hydrodissection and hydrodelineation of the lens was accomplished with balanced salt solution. Phacoemulsification of the lens utilizing phaco chop was accomplished in 15 seconds at 15% power. Additional Xylocaine MPF was instilled into the anterior chamber. This was followed by removal of the remaining cortex under irrigation and aspiration along with careful polishing of the posterior capsule in the capsule vacuum mode. Provisc was then used to stabilize the capsular bag and an KILEY PCP00 20.5 diopter posterior chamber intraocular lens was injected into the capsular bag. Remaining viscoelastic was removed from in and around the intra-ocular lens as well as the anterior chamber. The eye was then brought to normal intraocular pressure through the paracentesis port with balanced salt solution. The temporal incision was confirmed watertight. She then received 2 drops of 0.5% timolol followed by 2 drops of moxifloxacin, was lightly patched and shielded in the usual manner. There were no complications from the procedure. She tolerated the procedure well and was returned to outpatient recovery in good condition. MMELLEN / TAYLA: [id number] /
== END 2018-12-07 10:38 | disposition home or self-care (01) ==
LOC: OR 07:37
PROVIDERS: ATTEND Ophthalmology
DX: H25.811 Combined forms of age-related cataract, right eye (principal); H40.1112 Primary open-angle glaucoma, right eye, moderate stage; H21.561 Pupillary abnormality, right eye; H40.053 Ocular hypertension, bilateral; H47.013 Ischemic optic neuropathy, bilateral; Z97.3 Presence of spectacles and contact lenses; K21.9 Gastro-esophageal reflux disease without esophagitis; Z88.0 Allergy status to penicillin; Z79.899 Other long term (current) drug therapy; Z88.7 Allergy status to serum and vaccine; Z79.82 Long term (current) use of aspirin; Z85.3 Personal history of malignant neoplasm of breast; Z86.73 Personal history of transient ischemic attack (TIA), and cerebral infarction without residual deficits
CPT/HCPCS: 65820; 66984; C1780; J2250; J0171; J3010; J2001

== ENCOUNTER 2019-02-22 19:40 | Emergency (ER) | payer MEDICARE, BC ==
[2019-02-22 19:50] VITALS: TEMP 98
[2019-02-22 20:54] LABS: Basophils # (A) 0.4 k/uL (0-0.2); Basophils % (A) 3 %; Eosinophils # (A) 0.3 k/uL (0-0.7); Eosinophils % (A) 2 %; HCT 45.7 % (34.0-46.0); HGB 14.8 gm/dL (11.4-16.0); Lymphocytes # (A) 0.7 k/uL (1.0-4.8); Lymphocytes % (A) 5 %; MCH 28.5 pg (25.0-35.0); MCHC 32.4 g/dL (31.0-37.0); MCV 87.8 fL (80.0-100.0); Mean Platelet Volume 9.3; Monocytes % (A) 7 %; Neutrophils # (A) 11.6 k/uL (1.3-7.7); Neutrophils % (A) 82 %; Platelet Count 155 k/uL (150-450); RBC 5.21 m/uL (3.80-5.40); RDW 13.1 % (11.5-15.5); WBC 14.1 k/uL (3.8-10.6)
--- NOTE | 2019-02-22 20:57 | XR ---
EXAMINATION TYPE: XR Hip LT and AP Pelvis DATE OF EXAM: 02/22/2019 COMPARISON: NONE HISTORY: Left hip pain TECHNIQUE: A single AP view of the pelvis is obtained. Two views of the left hip are obtained. FINDINGS: The pelvic ring is intact. There are multiple surgical clips in the pelvis bilaterally. Pro ximal left femur and hip joint appear normal. Sacroiliac joints appear normal. There are spondylotic changes in the lower lumbar spine. There is femoral artery calcification. IMPRESSION: No acute abnormality of the pelvis and left hip.
--- NOTE | 2019-02-22 20:59 | XR ---
EXAMINATION TYPE: XR lumbar spine 2 or 3V DATE OF EXAM: 02/22/2019 COMPARISON: NONE HISTORY: Pain TECHNIQUE: 3 views FINDINGS: Vertebra have fairly normal alignment. There is degenerative disc space narrowing throughou t the lumbar spine with sclerosis and spur formation of the endplates. Posterior elements are intact. There is no compression fracture. Sacroiliac joints are intact. IMPRESSION: Moderately severe multilevel spondylotic changes. No fracture seen.
--- NOTE | 2019-02-22 21:00 | XR ---
EXAMINATION TYPE: XR chest 2V DATE OF EXAM: 02/22/2019 COMPARISON: June 11, 2016 HISTORY: Fall. Weakness. TECHNIQUE: Frontal and lateral views of the chest are obtained. FINDINGS: There is no heart failure nor confluent pneumonic infiltrate. There is a left axillary pac emaker. There is no pleural effusion. There are no hilar masses. Mediastinum is within normal limits. There is mild scarring at the lung apices. Bony thorax appears intact. IMPRESSION: No active cardiopulmonary disease. No change.
[2019-02-22 22:10] LABS: African American GFR (CKD) >90 (>60 ml/min/1.73 sqM); Albumin 3.8 g/dL (3.5-5.0); Anion Gap 7 mmol/L; Blood Urea Nitrogen 22 mg/dL (7-17); Calcium 9.3 mg/dL (8.4-10.2); Carbon Dioxide 29 mmol/L (22-30); Chloride 106 mmol/L (98-107); Glucose 122 mg/dL (74-99); Sodium 142 mmol/L (137-145); Total Bilirubin 0.8 mg/dL (0.2-1.3); Total Protein 7.3 g/dL (6.3-8.2)
[2019-02-22 22:16] LABS: ALT 20 U/L (9-52); AST 27 U/L (14-36); Alkaline Phosphatase 67 U/L (38-126); Potassium 3.7 mmol/L (3.5-5.1)
[2019-02-22 22:51] LABS: Appearance,Urine Cloudy (Clear); Bacteria,Urine Moderate /hpf; Bilirubin,Urine Negative (Negative); Blood,Urine Large (Negative); Color,Urine Light Red; Glucose,Urine (UA) Negative (Negative); Ketones,Urine 1+ (Negative); Leukocyte Esterase,Urine Large (Negative); Mucus,Urine Few /hpf; Nitrite,Urine Negative (Negative); PH, Urine 5.5 (5.0-8.0); Protein,Urine 1+ (Negative); RBC,Urine >182 /hpf (0-5); Specific Gravity,Urine 1.021 (1.001-1.035); Squamous Epithelial Cell,Urine 1 /hpf (0-4); Urobilinogen,Urine <2.0 mg/dL (<2.0); WBC,Urine 79 /hpf (0-5)
--- NOTE | 2019-02-22 23:01 | CT ---
EXAMINATION TYPE: CT brain lizbeth parker con DATE OF EXAM: 02/22/2019 COMPARISON: 12/13/[address] scan HISTORY: fall CT DLP: 1275.1 mGycm Automated exposure control for dose reduction was used. TECHNIQUE: CT scan of the head and cervical spine are performed without contrast. FINDINGS: There is some cerebral cortical atrophy. There is no mass effect nor midline shift. There is no sign of intracranial hemorrhage. There is mild hypodensity in the periventricular white matter . Calvarium is intact. Cervical vertebra show some straightening. There is 4 mm anterior subluxation of C4 in relation to C5 . There is no cervical spine compression fracture. There is degenerative disc space narrowing from C4 to T1. The skull base is intact. There is moderate multilevel cervical facet arthropathy. IMPRESSION: Cerebral atrophy and mild chronic small vessel ischemia. No acute intracranial abnormality. No change . Spondylotic changes in the cervical spine. There is a degenerative C4-5 spondylolisthesis that has pr ogressed compared to old CT scan of March 13, 2015. No fracture seen.
--- NOTE | 2019-02-22 23:06 | CT ---
EXAMINATION TYPE: CT abdomen pelvis w con DATE OF EXAM: 02/22/2019 COMPARISON: None HISTORY: Abdominal pain CT DLP: mGycm Automated exposure control for dose reduction was used. TECHNIQUE: Helical acquisition of images was performed from the lung bases through the pelvis. CONTRAST: Performed and , patient injected with mL of . The contrast was Isovue 100 mL. FINDINGS: Lung bases are clear of consolidation. There is no pleural effusion. Heart size is normal. There is m oderate-sized hiatal hernia. There are scattered cysts in the liver that measure up to 3 cm. The bile ducts are not dilated. Gallbladder appears normal. Spleen and pancreas appear normal. There is no adrenal mass. Kidneys have normal size. There is left-sided hydronephrosis. There is norm al contrast opacification of the kidneys. The ureters are not dilated. I see no obstructing calculus. Abdominal aorta is atheromatous. There is no retroperitoneal adenopathy. Bladder is almost empty. There is no inguinal hernia. There is no free fluid in the pelvis. There is no mesenteric edema. There is no ascites or free air. There is no sign of a bowel obstruction. There are multiple surgical clips in the left and right pelvic sidewall. Appendix is not seen. There is no sign of thickened appendix. There is multilevel spondylotic changes in the lumbar spine with disc space narrowing and spurring of the endplates. There is no compression fracture. Bony pelvis appears intact. IMPRESSION: THERE IS MILD LEFT-SIDED HYDRONEPHROSIS. NO OBSTRUCTING CALCULUS SEEN. LEFT URETER ARE NOT DILATED. T HERE IS SLIGHT DECREASED RENAL FUNCTION ON THE LEFT SIDE. DELAYED IMAGES SHOWED DELAYED CONTRAST IN T HE CALYCES OF THE LEFT KIDNEY COMPARED TO THE RIGHT. NO EVIDENCE OF ACUTE TRAUMATIC INJURY. MULTILEVEL MODERATE LUMBAR SPONDYLOTIC CHANGES.
[2019-02-22 23:13] VITALS: BP 182/90; PULSE 87; RESP 16
[2019-02-22] MEDS ORDERED: cefTRIAXone IN SWFI 1,000 MG/10 ML SYRINGE IVP STA (23:31)
--- NOTE | 2019-02-22 23:50 | ED ---
General Adult HPI - General Chief complaint: Extremity Injury, Lower Stated complaint: Hip Pain Time Seen by Provider: 02/22/19 19:52 Source: patient Mode of arrival: wheelchair Limitations: no limitations - History of Present Illness Initial comments: 78-year-old female with history of alhepresented female presenting for cc of back, left hip pain. Patient has history of Alzheimer's she was at home when her heard her fall. She quickly responded stating she was okay. Patient has not forgotten about the fall. He states that since the fall she's been complaining of left hip and low back pain. Patient has no other complaints she states she has been walking since the fall denies new loss of bowel bladder control urinary retention. She denies any fever, IVDU. Patient denies CURRIE, N/V currently. No other complaints. Appears well on arrival smiling laughing. Family at bedside denies patient having any complaints prior to the fall. They also state patient is at her baseline. - Related Data Home Medications Medication Instructions Recorded Confirmed Aspirin [Adult Low Dose Aspirin EC] 81 mg PO HS 03/13/15 12/02/18 Atenolol 25 mg PO QAM 03/13/15 12/02/18 Donepezil HCl 10 mg PO QAM 03/13/15 12/02/18 Omeprazole 20 mg PO HS 03/13/15 12/02/18 Simvastatin 20 mg PO QAM 03/13/15 12/02/18 Tolterodine ER [Detrol LA] 4 mg PO QAM 03/13/15 12/02/18 Ergocalciferol (Vitamin D2) 50,000 unit PO MO 05/22/16 12/02/18 [Vitamin D2] Previous Rx's Medication Instructions Recorded Cephalexin [Keflex] 500 mg PO Q12HR 7 Days #14 cap 02/22/19 Allergies Allergy/AdvReac Type Severity Reaction Status Date / Time influenza virus vaccine, Allergy Rash/Hives Verified 02/22/19 19:51 specific [influenza virus vacc,specific] Penicillins Allergy Rash/Hives Verified 02/22/19 19:51 Review of Systems ROS Statement: Those systems with pertinent positive or pertinent negative responses have been documented in the HPI. ROS Other: All systems not noted in ROS Statement are negative. Past Medical History Past Medical History: Cancer, Dementia, Eye Disorder, GERD/Reflux, Hyperlipidemia, Hypertension, Memory Impairment, Syncope Additional Past Medical History / Comment(s): HX LT BREAST CA. PAST HX OF SYNCOPE, STATES MEMORY PROBLEMS, rt cataract. alzhemiers History of Any Multi-Drug Resistant Organisms: None Reported Past Surgical History: Breast Surgery, Section, Hysterectomy, Pacemaker, Tonsillectomy Additional Past Surgical History / Comment(s): C-S X3. LT BREAST LUMPECTOMY. Past Anesthesia/Blood Transfusion Reactions: No Reported Reaction Type of Cardiac Device: Permanent Pacemaker Device Placement Date:: 05-25-16 [employer] Past Psychological History: No Psychological Hx Reported Smoking Status: Never smoker Past Alcohol Use History: None Reported Past Drug Use History: None Reported - Past Family History Father History Unknown: Yes Family Medical History: Eye Disorder Mother History Unknown: Yes Family Medical History: No Reported History General Exam - General Exam Comments Initial Comments: General: The patient is awake and alert, in no distress, and does not appear acutely ill. Eye: +3 mm pupils are equal, round and reactive to light, extra-ocular movemen ts are intact. No nystagmus. There is normal conjunctiva bilaterally. No signs of icterus. Ears, nose, mouth and throat: There are moist mucous membranes and no oral les ions. No raccoon or Franco sign. Neck: The neck is supple, there is no tenderness or JVD. No midline tenderness to palpation of the cervical thoracic or lumbar spine. Cardiovascular: There is a regular rate and rhythm. No murmur, rub or gallop is appreciated. Respiratory: Lungs are clear to auscultation, respirations are non-labored, breath sounds are equal. No wheezes, stridor, rales, or rhonchi. Gastrointestinal: Soft, non-distended, non-tender abdomen without masses or organomegaly noted. There is no rebound or guarding present. No CVA tenderness. Bowel sounds are unremarkable. Musculoskeletal: Patient has reproducible flank pain on physical examination. No bruising. Negative logroll. No lacerations or abrasions. Normal ROM, no tenderness. Strength 5/5. Sensation intact. Radial pulses equal bilaterally 2+. Neurological: A&O x 2-person [address]. CN II-XII intact, There are no obvious motor or sensory deficits. Coordination appears grossly intact. Speech is normal. Skin: Skin is warm and dry and no rashes or lesions are noted. Psychiatric: Cooperative, appropriate mood & affect, normal judgment. Limitations: no limitations Course Vital Signs 02/22/19 02/22/19 19:45 23:00 Temperature 98.0 F Pulse Rate 81 87 Respiratory 18 16 Rate Blood Pressure 193/87 182/90 O2 Sat by Pulse 94 L 95 Oximetry Medical Decision Making - Medical Decision Making Well-appearing 78 year old female presenting for hip low back pain. Mostly flank pain. CT the abdomen and pelvis revealed some hydronephrosis no kidney stone. The pain is very reproducible to palpation of muscle/skin appears musculoskeletal. Patient has history of fall. Urine analysis reveals findings consistent with urinary tract infection. Patient afebrile nontoxic appearing. No complaints aside from the fall. Imaging studies negative for acute osseous process. Patient is ambulatory very happy and well-appearing upon reevaluation she states the pain is gone. Family requesting discharge. Given negative imaging studies for acute processes, patient's well clinical appearance I feel she is stable for discharge with treatment for urinary tract infection. Case discussed with attending provider and she was discharged. While - Lab Data Result diagrams: 02/22/19 20:30 02/22/19 21:30 Lab Results 02/22/19 02/22/19 02/22/19 Range/Units 20:30 21:30 22:32 WBC 14.1 H (3.8-10.6) k/uL RBC 5.21 (3.80-5.40) m/uL Hgb 14.8 (11.4-16.0) gm/dL Hct 45.7 (34.0-46.0) % MCV 87.8 (80.0-100.0) fL MCH 28.5 (25.0-35.0) pg MCHC 32.4 (31.0-37.0) g/dL RDW 13.1 (11.5-15.5) % Plt Count 155 (150-450) k/uL Neutrophils % 82 % Lymphocytes % 5 % Monocytes % 7 % Eosinophils % 2 % Basophils % 3 % Neutrophils # 11.6 H (1.3-7.7) k/uL Lymphocytes # 0.7 L (1.0-4.8) k/uL Monocytes # 1.0 (0-1.0) k/uL Eosinophils # 0.3 (0-0.7) k/uL Basophils # 0.4 H (0-0.2) k/uL Sodium 142 (137-145) mmol/L Potassium 3.7 (3.5-5.1) mmol/L Chloride 106 (98-107) mmol/L Carbon Dioxide 29 (22-30) mmol/L Anion Gap 7 mmol/L BUN 22 H (7-17) mg/dL Creatinine 0.69 (0.52-1.04) mg/dL Est GFR (CKD-EPI)AfAm >90 (>60 ml/min/1.73 sqM) Est GFR (CKD-EPI)NonAf 83 (>60 ml/min/1.73 sqM) Glucose 122 H (74-99) mg/dL Calcium 9.3 (8.4-10.2) mg/dL Total Bilirubin 0.8 (0.2-1.3) mg/dL AST 27 (14-36) U/L ALT 20 (9-52) U/L Alkaline Phosphatase 67 (38-126) U/L Total Protein 7.3 (6.3-8.2) g/dL Albumin 3.8 (3.5-5.0) g/dL Urine Color Light Red Urine Appearance Cloudy H (Clear) Urine pH 5.5 (5.0-8.0) Ur Specific [place] 1.021 (1.001-1.035) Urine Protein 1+ H (Negative) Urine Glucose (UA) Negative (Negative) Urine Ketones 1+ H (Negative) Urine Blood Large H (Negative) Urine Nitrite Negative (Negative) Urine Bilirubin Negative (Negative) Urine Urobilinogen <2.0 (<2.0) mg/dL Ur Leukocyte Esterase Large H (Negative) Urine RBC >182 H (0-5) /hpf Urine WBC 79 H (0-5) /hpf Ur Squamous Epith Cells 1 (0-4) /hpf Urine Bacteria Moderate H (None) /hpf Urine Mucus Few H (None) /hpf Disposition Clinical Impression: Hip pain, Fall, Low back pain, UTI (urinary tract infection) Disposition: HOME SELF-CARE Condition: Good Instructions (If sedation given, give patient instructions): Urinary Tract Infection in Women (ED) Additional Instructions: Please use medication as discussed. Please follow-up with family doctor in the next 2 days. Please return to emergency room if the symptoms increase or worsen or for any other concerns. Prescriptions: Cephalexin [Keflex] 500 mg PO Q12HR 7 Days #14 cap Is patient prescribed a controlled substance at d/c from ED?: No Referrals: Edwin Frausto DO [Primary Care Provider] - 1-2 days Time of Disposition: 23:50
== END 2019-02-23 00:02 | disposition home or self-care (01) ==
LOC: EC 19:40
DX: M25.552 Pain in left hip (principal); M54.5 Low back pain; N39.0 Urinary tract infection, site not specified; N13.30 Unspecified hydronephrosis; G30.9 Alzheimer's disease, unspecified; F02.80 Dementia in other diseases classified elsewhere, unspecified severity, without behavioral disturbance, psychotic disturbance, mood disturbance, and anxiety; K21.9 Gastro-esophageal reflux disease without esophagitis; I10 Essential (primary) hypertension; E78.5 Hyperlipidemia, unspecified; Z79.82 Long term (current) use of aspirin; Z79.899 Other long term (current) drug therapy; Z88.0 Allergy status to penicillin; Z88.7 Allergy status to serum and vaccine; Z95.0 Presence of cardiac pacemaker; Z85.3 Personal history of malignant neoplasm of breast
CPT/HCPCS: 36415; 80053; 85025; 81001; 72100; 73502; 71046; 72125; 70450; 74177; 99284; 96374; J0696; Q9967

== ENCOUNTER → 2019-07-17 | Outpatient (CLI) | payer MEDICARE, BC ==
--- NOTE | 2019-07-17 16:15 | XR ---
EXAMINATION TYPE: XR clavicle RT, XR shoulder complete RT DATE OF EXAM: 07/17/2019 CLINICAL HISTORY: pain TECHNIQUE: Three views of the right shoulder are obtained. Into views of the right clavicle are subm itted. COMPARISON: None FINDINGS: Virtually nondisplaced mildly comminuted fracture involving the diametaphyseal region of th e proximal right humerus. Nondisplaced fracture component extending into the greater tuberosity is al so suspected. There is deformity of the distal clavicle and additional fracture is suspected. IMPRESSION: 1. As above ICD 10 closed FRACTURE, INITIAL EVALUATION
== END | disposition home or self-care (01) ==
LOC: RADXRMAIN 15:38
PROVIDERS: ATTEND Family Medicine
DX: S42.354A Nondisplaced comminuted fracture of shaft of humerus, right arm, initial encounter for closed fracture (principal); W19.XXXA Unspecified fall, initial encounter

== ENCOUNTER 2020-12-18 16:13 | Emergency (ER) | payer MEDICARE, BC ==
[2020-12-18 16:25] VITALS: TEMP 98.2
--- NOTE | 2020-12-18 16:31 | ED ---
General Adult HPI - General Chief complaint: Fall Stated complaint: Altered Time Seen by Provider: 12/18/20 16:26 Source: EMS, RN notes reviewed, old records reviewed Mode of arrival: EMS Limitations: altered mental status - History of Present Illness Initial comments: I evaluated the patient when she was placed in a room. Patient is an 80-year-old female with past medical history remarkable for dementia, chronic genital warts/rash, hypertension who at baseline is alert and oriented 1 presents emergency Department after an brought by EMS after being found at home on the ground. Patient's was brought to the emergency department this morning and patient was left at home alone for a short period of time. She was found down by family members and incontinent at home. She seemed dazed briefly but returned to her baseline mental status. She is brought to the emergency department for evaluation. Patient is unable to provide much history. She states she does not hurt anywhere at this time. However due to her chronic history of alert and oriented 1 which is her baseline, it is difficult to obtain any further history from her. Patient's family eventually presented to the emergency department. They corroborated the EMS story above. They would like her evaluated and would like to take her home if possible. They believe that she receives adequate care at home. They deny any sick contacts. Patient otherwise has been acting normally at home. Patient's was brought to the emergency department also for a fall. Patient was found down at home in the middle of a room not near stairs. Patient is not on blood thinners. - Related Data Home Medications Medication Instructions Recorded Confirmed Donepezil HCl 10 mg PO DAILY 03/13/15 12/18/20 Omeprazole 20 mg PO HS 03/13/15 12/18/20 Simvastatin 20 mg PO HS 03/13/15 12/18/20 Tolterodine ER [Detrol LA] 4 mg PO DAILY 03/13/15 12/18/20 atenoloL [Atenolol] 50 mg PO BID 03/13/15 12/18/20 Brimonidine Tartrate [Alphagan P 1 drops BOTH EYES BID 12/18/20 12/18/20 0.1% Ophth Soln] Memantine [Namenda] 10 mg PO BID 12/18/20 12/18/20 Previous Rx's Medication Instructions Recorded Sulfamethox-Tmp 800-160Mg [Bactrim 1 tab PO Q12HR 7 Days #14 tab 12/18/20 DS 800-160 mg] Allergies Allergy/AdvReac Type Severity Reaction Status Date / Time influenza virus vaccine, Allergy Rash/Hives Verified 12/18/20 18:02 specific [influenza virus vacc,specific] Penicillins Allergy Rash/Hives Verified 12/18/20 18:02 Review of Systems ROS Statement: Those systems with pertinent positive or pertinent negative responses have been documented in the HPI. Unable to obtain full ROS secondary to patient's chronic alert and oriented 1 mental status. ROS Other: All systems not noted in ROS Statement are negative. Past Medical History Past Medical History: Cancer, Dementia, Eye Disorder, GERD/Reflux, Hyperlipidemia, Hypertension, Memory Impairment, Syncope Additional Past Medical History / Comment(s): HX LT BREAST CA. PAST HX OF SYNCOPE, STATES MEMORY PROBLEMS, rt cataract. alzhemiers History of Any Multi-Drug Resistant Organisms: None Reported Past Surgical History: Breast Surgery, Section, Hysterectomy, Pacemaker, Tonsillectomy Additional Past Surgical History / Comment(s): C-S X3. LT BREAST LUMPECTOMY. Past Anesthesia/Blood Transfusion Reactions: No Reported Reaction Type of Cardiac Device: Permanent Pacemaker Device Placement Date:: 05-25-16 [employer] Past Psychological History: No Psychological Hx Reported Past Alcohol Use History: None Reported Past Drug Use History: None Reported - Past Family History Father History Unknown: Yes Family Medical History: Eye Disorder Mother History Unknown: Yes Family Medical History: No Reported History General Exam - General Exam Comments Initial Comments: General: Appears in no acute distress. HEAD: Normal with no signs of head trauma. No raccoon eyes. No Franco sign. No obvious step-off or deformity. EYES: Patient has chronic right eye blindness. EOMI otherwise. ENT: Hearing grossly intact, normal oropharynx. RESPIRATORY: Clear breath sounds bilaterally. No wheezes, rales, or rhonchi. C/V: Regular rate and rhythm. S1 and S2 auscultated, no edema, peripheral pulses 2+ and intact throughout ABD: Abd is soft, nontender, nondistended EXT: Patient is able to move all 4 extremities. She is very mild tenderness to palpation in the right hip. She also has very mild tenderness to palpation along her spine without any definitive location from where the tenderness is present. Is difficult to ascertain whether or not she is paraspinal muscle tenderness versus midline tenderness. Pelvis is stable. No obvious deformities palpated along the spine. SKIN: Appears to be a chronic general warts infection NEURO: Alert and oriented 1. Patient appears to have intact illness 2 through 12. She is able to move all 4 extremities. No obvious strength deficits. Obvious sensory deficits. GCS is 15. NIH appears to be 0. Limitations: altered mental status Course Vital Signs 12/18/20 12/18/20 16:17 20:20 Temperature 98.2 F Pulse Rate 68 73 Respiratory 18 16 Rate Blood Pressure 178/88 166/89 O2 Sat by Pulse 94 L 98 Oximetry Medical Decision Making - Medical Decision Making Based on the patient's presentation and physical exam, I would like to obtain basic laboratory studies addition to possible cultures and urine studies. We will obtain CT imaging of the spine as well as head brain. Chest x-ray and right hip and pelvic x-ray will be obtained. Troponin and EKG will also be obtained. She'll be given Tylenol for pain management. Family arrived and corroborated the story from EMS was present able to provide more details that she appears to be at baseline but like to take her home with w orkup is negative. EKG shows no signs of acute ischemia. Laboratory studies are remarkable for a negative troponin. Urinalysis, which there was a delay in obtaining due to the need for straight catheterization, was grossly positive for an acute urinary tract infection. Chest x-ray shows no cardiopulmonary process. There is a trace left pleural effusion. Patient's pelvic x-ray in addition to head and C-spine, T-spine, L-spine imaging revealed no acute traumatic process. At this time I discussed the results of the imaging and laboratory studies with the patient's daughter appears to be the primary caregiver in addition to other family members. They were in agreement with a dose of antibiotics here in the emergency department and they feel comfortable taking her home in providing care . Patient will therefore be given 1 g of Rocephin here in the department. Her vital signs remained stable throughout his stay. I believe it is safe to discharge her home in the care of her family. I will provide the patient with a prescription for Bactrim DS 1 tab twice a day for 7 days. I instructed the patient to follow up with their PCP in the next 3 days. I explained that the patient should return to the emergency department if they experience any worsening symptoms. Strict return precautions were discussed with the patient. The patient expressed understanding of these instructions. I answered all questions that the patient had. The patient was discharged home in fair condition with their prescriptions and follow up information. - Lab Data Result diagrams: 12/18/20 16:43 12/18/20 16:43 Lab Results 12/18/20 12/18/20 12/18/20 Range/Units 16:43 16:43 16:43 WBC 10.5 (3.8-10.6) k/uL RBC 5.46 H (3.80-5.40) m/uL Hgb 16.3 H (11.4-16.0) gm/dL Hct 48.9 H (34.0-46.0) % MCV 89.7 (80.0-100.0) fL MCH 29.8 (25.0-35.0) pg MCHC 33.2 (31.0-37.0) g/dL RDW 12.6 (11.5-15.5) % Plt Count 264 (150-450) k/uL MPV 9.2 Neutrophils % 72 % Lymphocytes % 16 % Monocytes % 10 % Eosinophils % 0 % Basophils % 0 % Neutrophils # 7.6 (1.3-7.7) k/uL Lymphocytes # 1.7 (1.0-4.8) k/uL Monocytes # 1.0 (0-1.0) k/uL Eosinophils # 0.0 (0-0.7) k/uL Basophils # 0.0 (0-0.2) k/uL PT 10.7 (9.0-12.0) sec INR 1.0 (<1.2) APTT 23.6 (22.0-30.0) sec Sodium 141 (137-145) mmol/L Potassium 4.7 (3.5-5.1) mmol/L Chloride 103 (98-107) mmol/L Carbon Dioxide 30 (22-30) mmol/L Anion Gap 8 mmol/L BUN 19 H (7-17) mg/dL Creatinine 0.56 (0.52-1.04) mg/dL Est GFR (CKD-EPI)AfAm >90 (>60 ml/min/1.73 sqM) Est GFR (CKD-EPI)NonAf 88 (>60 ml/min/1.73 sqM) Glucose 116 H (74-99) mg/dL Plasma Lactic Acid Anders (0.7-2.0) mmol/L Calcium 9.6 (8.4-10.2) mg/dL Total Bilirubin 0.6 (0.2-1.3) mg/dL AST 28 (14-36) U/L ALT 9 (4-34) U/L Alkaline Phosphatase 73 (38-126) U/L Creatine Kinase 26 L (30-135) U/L Troponin I (0.000-0.034) ng/mL Total Protein 7.7 (6.3-8.2) g/dL Albumin 3.7 (3.5-5.0) g/dL Urine Color Urine Appearance (Clear) Urine pH (5.0-8.0) Ur Specific Norris (1.001-1.035) Urine Protein (Negative) Urine Glucose (UA) (Negative) Urine Ketones (Negative) Urine Blood (Negative) Urine Nitrite (Negative) Urine Bilirubin (Negative) Urine Urobilinogen (<2.0) mg/dL Ur Leukocyte Esterase (Negative) Urine RBC (0-5) /hpf Urine WBC (0-5) /hpf Ur Squamous Epith Cells (0-4) /hpf Urine Mucus (None) /hpf 12/18/20 12/18/20 12/18/20 Range/Units 16:43 18:25 20:29 WBC (3.8-10.6) k/uL RBC (3.80-5.40) m/uL Hgb (11.4-16.0) gm/dL Hct (34.0-46.0) % MCV (80.0-100.0) fL MCH (25.0-35.0) pg MCHC (31.0-37.0) g/dL RDW (11.5-15.5) % Plt Count (150-450) k/uL MPV Neutrophils % % Lymphocytes % % Monocytes % % Eosinophils % % Basophils % % Neutrophils # (1.3-7.7) k/uL Lymphocytes # (1.0-4.8) k/uL Monocytes # (0-1.0) k/uL Eosinophils # (0-0.7) k/uL Basophils # (0-0.2) k/uL PT (9.0-12.0) sec INR (<1.2) APTT (22.0-30.0) sec Sodium (137-145) mmol/L Potassium (3.5-5.1) mmol/L Chloride (98-107) mmol/L Carbon Dioxide (22-30) mmol/L Anion Gap mmol/L BUN (7-17) mg/dL Creatinine (0.52-1.04) mg/dL Est GFR (CKD-EPI)AfAm (>60 ml/min/1.73 sqM) Est GFR (CKD-EPI)NonAf (>60 ml/min/1.73 sqM) Glucose (74-99) mg/dL Plasma Lactic Acid Anders 1.7 (0.7-2.0) mmol/L Calcium (8.4-10.2) mg/dL Total Bilirubin (0.2-1.3) mg/dL AST (14-36) U/L ALT (4-34) U/L Alkaline Phosphatase (38-126) U/L Creatine Kinase (30-135) U/L Troponin I <0.012 (0.000-0.034) ng/mL Total Protein (6.3-8.2) g/dL Albumin (3.5-5.0) g/dL Urine Color Yellow Urine Appearance Cloudy H (Clear) Urine pH 6.0 (5.0-8.0) Ur Specific Norris 1.026 (1.001-1.035) Urine Protein 1+ H (Negative) Urine Glucose (UA) Negative (Negative) Urine Ketones 2+ H (Negative) Urine Blood Small H (Negative) Urine Nitrite Negative (Negative) Urine Bilirubin Negative (Negative) Urine Urobilinogen 2.0 (<2.0) mg/dL Ur Leukocyte Esterase Large H (Negative) Urine RBC 51 H (0-5) /hpf Urine WBC 160 H (0-5) /hpf Ur Squamous Epith Cells <1 (0-4) /hpf Urine Mucus Occasional H (None) /hpf - EKG Data -: EKG Interpreted by Me EKG Comments: 12-lead Electrocardiogram Interpretation Note EKG was reviewed and interpreted by myself. 12-lead ECG performed at 1643 is interpreted by me as revealing normal sinus rhythm at a rate of 72 beats per minute. Left axis deviation. CO interval is 172 ms, QRS duration is 82 ms, QTc is 462 ms.. There were no ST or T wave abnormalities to suggest myocardial ischemia or injury. R wave progression across the precordium was satisfactory. By my interpretation this EKG is non-diagnostic for acute ischemia. Disposition Clinical Impression: UTI (urinary tract infection), Dementia Disposition: HOME SELF-CARE Condition: Fair Instructions (If sedation given, give patient instructions): Urinary Tract Infection in Women (ED), Fall Prevention for Older Adults (ED) Prescriptions: Sulfamethox-Tmp 800-160Mg [Bactrim DS 800-160 mg] 1 tab PO Q12HR 7 Days #14 tab Is patient prescribed a controlled substance at d/c from ED?: No Referrals: Edwin Frausto DO [Primary Care Provider] - 1-2 days
[2020-12-18] MEDS ORDERED: ACETAMINOPHEN TAB 325 MG TAB PO STA (17:10)
[2020-12-18 18:18] LABS: Basophils % (A) 0 %; Eosinophils % (A) 0 %; HCT 48.9 % (34.0-46.0); HGB 16.3 gm/dL (11.4-16.0); Lymphocytes # (A) 1.7 k/uL (1.0-4.8); Lymphocytes % (A) 16 %; MCH 29.8 pg (25.0-35.0); MCHC 33.2 g/dL (31.0-37.0); MCV 89.7 fL (80.0-100.0); Mean Platelet Volume 9.2; Monocytes % (A) 10 %; Neutrophils # (A) 7.6 k/uL (1.3-7.7); Neutrophils % (A) 72 %; Platelet Count 264 k/uL (150-450); RBC 5.46 m/uL (3.80-5.40); RDW 12.6 % (11.5-15.5); WBC 10.5 k/uL (3.8-10.6)
[2020-12-18 18:27] LABS: ALT 9 U/L (4-34); AST 28 U/L (14-36); African American GFR (CKD) >90 (>60 ml/min/1.73 sqM); Albumin 3.7 g/dL (3.5-5.0); Alkaline Phosphatase 73 U/L (38-126); Anion Gap 8 mmol/L; Blood Urea Nitrogen 19 mg/dL (7-17); Calcium 9.6 mg/dL (8.4-10.2); Carbon Dioxide 30 mmol/L (22-30); Chloride 103 mmol/L (98-107); Creatine Kinase 26 U/L (30-135); Glucose 116 mg/dL (74-99); Non-African American GFR(CKD) 88 (>60 ml/min/1.73 sqM); Partial Thromboplastin Time 23.6 sec (22.0-30.0); Potassium 4.7 mmol/L (3.5-5.1); Prothrombin Time 10.7 sec (9.0-12.0); Sodium 141 mmol/L (137-145); Total Bilirubin 0.6 mg/dL (0.2-1.3); Total Protein 7.7 g/dL (6.3-8.2)
--- NOTE | 2020-12-18 18:27 | CT ---
EXAMINATION TYPE: CT brain lizbeth parker con DATE OF EXAM: 12/18/2020 COMPARISON: 02/22/2019. HISTORY: fall CT DLP: 1369.6 mGycm Automated exposure control for dose reduction was used. TECHNIQUE: CT scan of the head and cervical spine are performed without contrast. FINDINGS: There is no acute intracranial hemorrhage, mass effect, or midline shift identified. The ventricles and sulci are within normal limits in size. There is mild white matter disease and parenc hymal volume loss. The globes are intact and the visualized sinuses are clear. Cervical spine is visualized in its entirety from C1 through upper thoracic levels and demonstrates n o acute fracture. There is moderate to severe C4-C7 spondylosis. There is minimal anterolisthesis of C4 on C5. Prevertebral soft tissue appears within normal limits. The C1-C2 articulation is unremarka ble. IMPRESSION: 1. There is no acute fracture or dislocation evident in the cervical spine. 2. No acute intracranial hemorrhage, mass effect, or midline shift is seen.
--- NOTE | 2020-12-18 18:31 | CT ---
EXAMINATION TYPE: CT thor lumbar spine wo con DATE OF EXAM: 12/18/2020 COMPARISON: None available. HISTORY: back pain TECHNIQUE: AXIAL CT IMAGES OF THE THORACOLUMBAR SPINE WAS PERFORMED WITHOUT CONTRAST. CT DLP: 857.2 mGycm Automated exposure control for dose reduction was used. FINDINGS: There is no acute fracture or subluxation of the thoracolumbar spine. There is multilevel moderate th oracic and moderate to severe lumbar spondylosis. There is mild dextroconvex curvature of the thoraci c spine. No significant paraspinal soft tissue abnormality. IMPRESSION: NO ACUTE FRACTURE OF THE THORACOLUMBAR SPINE.
--- NOTE | 2020-12-18 18:45 | XR ---
EXAMINATION TYPE: XR Hip RT and AP Pelvis DATE OF EXAM: 12/18/2020 COMPARISON: NONE HISTORY: Pain status post fall. TECHNIQUE: A single AP view of the pelvis is obtained. Two views of the right hip are obtained. FINDINGS: There is no acute fracture or dislocation of the pelvis or right hip. There are mild degene rative changes in bilateral hips. Multiple surgical clips overlying the pelvis and lower lumbar spine seen. There are severe degenerative changes of the imaged lower lumbar spine. IMPRESSION: No acute osseous abnormality.
--- NOTE | 2020-12-18 18:51 | XR ---
EXAMINATION TYPE: XR chest 1V portable DATE OF EXAM: 12/18/2020 COMPARISON: 02/22/2019. HISTORY: Pain status post fall. TECHNIQUE: Single frontal view of the chest is obtained. FINDINGS: There is trace left pleural effusion with adjacent opacity. No pneumothorax seen. The car diac silhouette size is within normal limits. Stable left pacemaker. The osseous structures are inta ct. IMPRESSION: Trace left pleural effusion.
[2020-12-18 20:37] VITALS: BP 166/89; PULSE 73; RESP 16
[2020-12-18 20:38] LABS: Appearance,Urine Cloudy (Clear); Bilirubin,Urine Negative (Negative); Blood,Urine Small (Negative); Color,Urine Yellow; Glucose,Urine (UA) Negative (Negative); Ketones,Urine 2+ (Negative); Leukocyte Esterase,Urine Large (Negative); Mucus,Urine Occasional /hpf; Nitrite,Urine Negative (Negative); Protein,Urine 1+ (Negative); RBC,Urine 51 /hpf (0-5); Specific Gravity,Urine 1.026 (1.001-1.035); Squamous Epithelial Cell,Urine <1 /hpf (0-4); WBC,Urine 160 /hpf (0-5)
[2020-12-18] MEDS ORDERED: cefTRIAXone IN SWFI 1,000 MG/10 ML SYRINGE IVP STA (21:33)
== END 2020-12-18 22:06 | disposition home or self-care (01) ==
LOC: EC 16:13
DX: F03.90 Unspecified dementia, unspecified severity, without behavioral disturbance, psychotic disturbance, mood disturbance, and anxiety (principal); N39.0 Urinary tract infection, site not specified; I10 Essential (primary) hypertension; E78.5 Hyperlipidemia, unspecified; K21.9 Gastro-esophageal reflux disease without esophagitis; Z85.3 Personal history of malignant neoplasm of breast; Z88.7 Allergy status to serum and vaccine; Z88.0 Allergy status to penicillin; Z90.710 Acquired absence of both cervix and uterus; Z95.0 Presence of cardiac pacemaker; Z90.89 Acquired absence of other organs
CPT/HCPCS: 99285; 96374; 36415; 93005; 80053; 82550; 83605; 84484; 85025; 85610; 85730; 81001; 87086; 73502; 71045; 72128; 72125; 72131; 70450; J0696; 87077; 87186

== ENCOUNTER 2021-04-14 11:00 | Emergency (ER) | payer MEDICARE, BC ==
[2021-04-14 11:30] VITALS: TEMP 96.9
[2021-04-14] MEDS ORDERED: SODIUM CHLORIDE 0.9% 500 ML 500 ML IV STA (11:43)
--- NOTE | 2021-04-14 12:05 | ED ---
General Adult HPI - General Chief complaint: Weakness Stated complaint: weakness Time Seen by Provider: 04/14/21 11:30 Source: EMS Mode of arrival: EMS Limitations: no limitations - History of Present Illness Initial comments: 80-year-old female with a past medical history of dementia, GERD, hyperlipidemia, hypertension, syncope presents to the emergency room for weakness. According to patient she has no complaints today however states that her family thinks that she needs more help. I discussed this case with her daughter. She states the patient has fallen twice in the past week and patient's can no longer care for her. States that he is wheelchair- bound and cannot help her enough to do her ADLs and get around. They state that she has been more weak than normal. They called [facility] and [facility] stated they needed a referral from the hospital so they brought her here.Patient has no other complaints at this time including shortness of breath, chest pain, abdominal pain, nausea or vomiting, headache, or visual changes. - Related Data Home Medications Medication Instructions Recorded Confirmed Donepezil HCl 10 mg PO DAILY 03/13/15 12/18/20 Omeprazole 20 mg PO HS 03/13/15 12/18/20 Simvastatin 20 mg PO HS 03/13/15 12/18/20 Tolterodine ER [Detrol LA] 4 mg PO DAILY 03/13/15 12/18/20 atenoloL [Atenolol] 50 mg PO BID 03/13/15 12/18/20 Brimonidine Tartrate [Alphagan P 1 drops BOTH EYES BID 12/18/20 12/18/20 0.1% Ophth Soln] Memantine [Namenda] 10 mg PO BID 12/18/20 12/18/20 Previous Rx's Medication Instructions Recorded Sulfamethox-Tmp 800-160Mg [Bactrim 1 tab PO Q12HR 7 Days #14 tab 12/18/20 DS 800-160 mg] Cephalexin [Keflex] 500 mg PO BID 7 Days #14 cap 04/14/21 Allergies Allergy/AdvReac Type Severity Reaction Status Date / Time influenza virus vaccine, Allergy Rash/Hives Verified 12/18/20 18:02 specific [influenza virus vacc,specific] Penicillins Allergy Rash/Hives Verified 12/18/20 18:02 Review of Systems ROS Statement: Those systems with pertinent positive or pertinent negative responses have been documented in the HPI. ROS Other: All systems not noted in ROS Statement are negative. Past Medical History Past Medical History: Cancer, Dementia, Eye Disorder, GERD/Reflux, Hyperlipidemia, Hypertension, Memory Impairment, Syncope Additional Past Medical History / Comment(s): HX LT BREAST CA. PAST HX OF SYNCOPE, STATES MEMORY PROBLEMS, rt cataract. alzhemiers History of Any Multi-Drug Resistant Organisms: None Reported Past Surgical History: Breast Surgery, Section, Hysterectomy, Pacemaker, Tonsillectomy Additional Past Surgical History / Comment(s): C-S X3. LT BREAST LUMPECTOMY. Past Anesthesia/Blood Transfusion Reactions: No Reported Reaction Type of Cardiac Device: Permanent Pacemaker Device Placement Date:: 05-25-16 [email or web address] Past Psychological History: No Psychological Hx Reported Past Alcohol Use History: None Reported Past Drug Use History: None Reported - Past Family History Father History Unknown: Yes Family Medical History: Eye Disorder Mother History Unknown: Yes Family Medical History: No Reported History General Exam Limitations: no limitations General appearance: alert, in no apparent distress Head exam: Present: atraumatic Eye exam: Present: normal appearance, PERRL, EOMI. Absent: scleral icterus, conjunctival injection ENT exam: Present: normal exam, mucous membranes moist Neck exam: Present: normal inspection, full ROM. Absent: tenderness Respiratory exam: Present: normal lung sounds bilaterally. Absent: respiratory distress, wheezes, chest wall tenderness Cardiovascular Exam: Present: regular rate, normal rhythm, normal heart sounds GI/Abdominal exam: Present: soft, normal bowel sounds. Absent: distended, tenderness Extremities exam: Present: full ROM (Full range of motion of all extremities) Neurological exam: Present: alert Course Vital Signs 04/14/21 11:27 Temperature 96.9 F L Pulse Rate 79 Respiratory 18 Rate Blood Pressure 146/84 O2 Sat by Pulse 95 Oximetry EKG Findings - EKG Comments: EKG Findings:: Normal sinus rhythm, ventricular rate 78, AZ interval 166, QTc 440 Medical Decision Making - Medical Decision Making Vitals are stable. CBC and CMP unremarkable. A urinalysis however does show evidence of urinary tract infection. Patient will be treated. Chest x-ray shows no new infiltrate. EKG is nonischemic. [facility] case management had lengthy discussion with family. At this time they do not wish to place patient in a skilled nursing as she is not able to do rehab as she is bedridden. However they want to try adult foster care. The daughter would like a few days to decide which adult foster care and therefore does not want her placed directly from the emergency room. Patient will be discharged home in daughter's care and has resources for adult foster care centers as well as several calls out already from today. - Lab Data Result diagrams: 04/14/21 12:35 04/14/21 12:16 Lab Results 04/14/21 04/14/21 04/14/21 Range/Units 12:16 12:16 12:35 WBC 9.3 (3.8-10.6) k/uL RBC 4.73 (3.80-5.40) m/uL Hgb 13.7 (11.4-16.0) gm/dL Hct 44.3 (34.0-46.0) % MCV 93.7 (80.0-100.0) fL MCH 28.9 (25.0-35.0) pg MCHC 30.9 L (31.0-37.0) g/dL RDW 13.7 (11.5-15.5) % Plt Count 221 (150-450) k/uL MPV 8.0 Neutrophils % 74 % Lymphocytes % 15 % Monocytes % 6 % Eosinophils % 3 % Basophils % 0 % Neutrophils # 6.9 (1.3-7.7) k/uL Lymphocytes # 1.4 (1.0-4.8) k/uL Monocytes # 0.6 (0-1.0) k/uL Eosinophils # 0.3 (0-0.7) k/uL Basophils # 0.0 (0-0.2) k/uL Hypochromasia Moderate Sodium 139 (137-145) mmol/L Potassium 4.3 (3.5-5.1) mmol/L Chloride 105 (98-107) mmol/L Carbon Dioxide 30 (22-30) mmol/L Anion Gap 4 mmol/L BUN 23 H (7-17) mg/dL Creatinine 0.51 L (0.52-1.04) mg/dL Est GFR (CKD-EPI)AfAm >90 (>60 ml/min/1.73 sqM) Est GFR (CKD-EPI)NonAf >90 (>60 ml/min/1.73 sqM) Glucose 101 H (74-99) mg/dL Plasma Lactic Acid Anders (0.7-2.0) mmol/L Calcium 9.0 (8.4-10.2) mg/dL Magnesium 2.0 (1.6-2.3) mg/dL Total Bilirubin 0.4 (0.2-1.3) mg/dL AST 30 (14-36) U/L ALT 13 (4-34) U/L Alkaline Phosphatase 92 (38-126) U/L Total Protein 6.7 (6.3-8.2) g/dL Albumin 2.8 L (3.5-5.0) g/dL Urine Color Urine Appearance (Clear) Urine pH (5.0-8.0) Ur Specific Sandoval (1.001-1.035) Urine Protein (Negative) Urine Glucose (UA) (Negative) Urine Ketones (Negative) Urine Blood (Negative) Urine Nitrite (Negative) Urine Bilirubin (Negative) Urine Urobilinogen (<2.0) mg/dL Ur Leukocyte Esterase (Negative) Urine RBC (0-5) /hpf Urine WBC (0-5) /hpf Ur Squamous Epith Cells (0-4) /hpf Urine Bacteria (None) /hpf Urine Mucus (None) /hpf Coronavirus (PCR) Not Detected (Not Detectd) 04/14/21 04/14/21 Range/Units 12:35 14:44 WBC (3.8-10.6) k/uL RBC (3.80-5.40) m/uL Hgb (11.4-16.0) gm/dL Hct (34.0-46.0) % MCV (80.0-100.0) fL MCH (25.0-35.0) pg MCHC (31.0-37.0) g/dL RDW (11.5-15.5) % Plt Count (150-450) k/uL MPV Neutrophils % % Lymphocytes % % Monocytes % % Eosinophils % % Basophils % % Neutrophils # (1.3-7.7) k/uL Lymphocytes # (1.0-4.8) k/uL Monocytes # (0-1.0) k/uL Eosinophils # (0-0.7) k/uL Basophils # (0-0.2) k/uL Hypochromasia Sodium (137-145) mmol/L Potassium (3.5-5.1) mmol/L Chloride (98-107) mmol/L Carbon Dioxide (22-30) mmol/L Anion Gap mmol/L BUN (7-17) mg/dL Creatinine (0.52-1.04) mg/dL Est GFR (CKD-EPI)AfAm (>60 ml/min/1.73 sqM) Est GFR (CKD-EPI)NonAf (>60 ml/min/1.73 sqM) Glucose (74-99) mg/dL Plasma Lactic Acid Anders 1.6 (0.7-2.0) mmol/L Calcium (8.4-10.2) mg/dL Magnesium (1.6-2.3) mg/dL Total Bilirubin (0.2-1.3) mg/dL AST (14-36) U/L ALT (4-34) U/L Alkaline Phosphatase (38-126) U/L Total Protein (6.3-8.2) g/dL Albumin (3.5-5.0) g/dL Urine Color Yellow Urine Appearance Cloudy H (Clear) Urine pH 6.5 (5.0-8.0) Ur Specific Sandoval 1.027 (1.001-1.035) Urine Protein 1+ H (Negative) Urine Glucose (UA) Negative (Negative) Urine Ketones Negative (Negative) Urine Blood Trace H (Negative) Urine Nitrite Positive H (Negative) Urine Bilirubin Negative (Negative) Urine Urobilinogen 2.0 (<2.0) mg/dL Ur Leukocyte Esterase Large H (Negative) Urine RBC 8 H (0-5) /hpf Urine WBC >182 H (0-5) /hpf Ur Squamous Epith Cells 1 (0-4) /hpf Urine Bacteria Rare H (None) /hpf Urine Mucus Moderate H (None) /hpf Coronavirus (PCR) (Not Detectd) Disposition Clinical Impression: UTI (urinary tract infection) Disposition: HOME SELF-CARE Condition: Good Instructions (If sedation given, give patient instructions): Weakness (ED), Urinary Tract Infection in Women (ED) Additional Instructions: Please take antibiotic as directed. Follow-up on adult foster care centers. Return to the emergency room for any worsening symptoms. Prescriptions: Cephalexin [Keflex] 500 mg PO BID 7 Days #14 cap Is patient prescribed a controlled substance at d/c from ED?: No Referrals: Edwin Frausto DO [Primary Care Provider] - 1-2 days Time of Disposition: 15:59
[2021-04-14 12:45] LABS: ALT 13 U/L (4-34); AST 30 U/L (14-36); African American GFR (CKD) >90 (>60 ml/min/1.73 sqM); Albumin 2.8 g/dL (3.5-5.0); Alkaline Phosphatase 92 U/L (38-126); Anion Gap 4 mmol/L; Blood Urea Nitrogen 23 mg/dL (7-17); Carbon Dioxide 30 mmol/L (22-30); Chloride 105 mmol/L (98-107); Glucose 101 mg/dL (74-99); Non-African American GFR(CKD) >90 (>60 ml/min/1.73 sqM); Potassium 4.3 mmol/L (3.5-5.1); Sodium 139 mmol/L (137-145); Total Bilirubin 0.4 mg/dL (0.2-1.3); Total Protein 6.7 g/dL (6.3-8.2)
[2021-04-14 12:46] LABS: Basophils % (A) 0 %; Eosinophils # (A) 0.3 k/uL (0-0.7); Eosinophils % (A) 3 %; HCT 44.3 % (34.0-46.0); HGB 13.7 gm/dL (11.4-16.0); Hypochromasia Moderate; Lymphocytes # (A) 1.4 k/uL (1.0-4.8); Lymphocytes % (A) 15 %; MCH 28.9 pg (25.0-35.0); MCHC 30.9 g/dL (31.0-37.0); MCV 93.7 fL (80.0-100.0); Monocytes # (A) 0.6 k/uL (0-1.0); Monocytes % (A) 6 %; Neutrophils # (A) 6.9 k/uL (1.3-7.7); Neutrophils % (A) 74 %; Platelet Count 221 k/uL (150-450); RBC 4.73 m/uL (3.80-5.40); RDW 13.7 % (11.5-15.5); WBC 9.3 k/uL (3.8-10.6)
--- NOTE | 2021-04-14 13:56 | XR ---
EXAMINATION TYPE: XR chest 2V DATE OF EXAM: 04/14/2021 COMPARISON: Chest x-ray December 18, 2020 HISTORY: Weakness. TECHNIQUE: Frontal and lateral views of the chest are obtained. FINDINGS: Osseous structures are demineralized. Cardiac silhouette size stable and within normal gruber its with dual-lead pacemaker and atherosclerotic thoracic aorta. Chronic parenchymal changes bilatera lly with left basilar opacity redemonstrated. IMPRESSION: Chronic changes with left basilar linear scarring and/or atelectasis. No new infiltrate.
[2021-04-14 15:35] LABS: Appearance,Urine Cloudy (Clear); Bacteria,Urine Rare /hpf; Bilirubin,Urine Negative (Negative); Blood,Urine Trace (Negative); Color,Urine Yellow; Glucose,Urine (UA) Negative (Negative); Ketones,Urine Negative (Negative); Leukocyte Esterase,Urine Large (Negative); Mucus,Urine Moderate /hpf; Nitrite,Urine Positive (Negative); PH, Urine 6.5 (5.0-8.0); Protein,Urine 1+ (Negative); RBC,Urine 8 /hpf (0-5); Specific Gravity,Urine 1.027 (1.001-1.035); Squamous Epithelial Cell,Urine 1 /hpf (0-4); WBC,Urine >182 /hpf (0-5)
[2021-04-14] MEDS ORDERED: cefTRIAXone IN SWFI 1,000 MG/10 ML SYRINGE IVP STA (15:46)
[2021-04-14 15:59] VITALS: BP 154/78; PULSE 78; RESP 16
== END 2021-04-14 19:03 | disposition home or self-care (01) ==
LOC: EC 11:00
DX: N39.0 Urinary tract infection, site not specified (principal); F03.90 Unspecified dementia, unspecified severity, without behavioral disturbance, psychotic disturbance, mood disturbance, and anxiety; K21.9 Gastro-esophageal reflux disease without esophagitis; E78.5 Hyperlipidemia, unspecified; I10 Essential (primary) hypertension; Z20.822 Contact with and (suspected) exposure to COVID-19; Z88.7 Allergy status to serum and vaccine; Z88.0 Allergy status to penicillin; Z85.3 Personal history of malignant neoplasm of breast; Z90.710 Acquired absence of both cervix and uterus; Z95.0 Presence of cardiac pacemaker
CPT/HCPCS: 99285; 96374; 96361; 36415; 93005; 80053; 83605; 83735; 85025; 81001; 87086; 87635; 71046; J0696; 87077; 87186

== ENCOUNTER 2021-07-11 11:11 | Inpatient (IN) | payer MEDICARE, BC ==
[2021-07-11] MEDS ORDERED: SODIUM CHLORIDE 0.9% 500 ML 500 ML IV ONE (11:43)
[2021-07-11 12:27] LABS: Basophils # (A) 0.1 k/uL (0-0.2); Basophils % (A) 1 %; Eosinophils # (A) 0.1 k/uL (0-0.7); Eosinophils % (A) 1 %; HCT 47.1 % (34.0-46.0); HGB 14.3 gm/dL (11.4-16.0); Hypochromasia Slight; Lymphocytes # (A) 1.4 k/uL (1.0-4.8); Lymphocytes % (A) 12 %; MCH 27.4 pg (25.0-35.0); MCHC 30.3 g/dL (31.0-37.0); MCV 90.3 fL (80.0-100.0); Mean Platelet Volume 8.5; Monocytes # (A) 0.7 k/uL (0-1.0); Monocytes % (A) 6 %; Neutrophils # (A) 9.5 k/uL (1.3-7.7); Neutrophils % (A) 80 %; Platelet Count 187 k/uL (150-450); RBC 5.21 m/uL (3.80-5.40); WBC 11.8 k/uL (3.8-10.6)
[2021-07-11 12:33] LABS: Appearance,Urine Clear (Clear); Bilirubin,Urine Negative (Negative); Blood,Urine Negative (Negative); Color,Urine Yellow; Glucose,Urine (UA) Negative (Negative); Ketones,Urine 1+ (Negative); Leukocyte Esterase,Urine Moderate (Negative); Mucus,Urine Rare /hpf; Nitrite,Urine Negative (Negative); Protein,Urine 1+ (Negative); Specific Gravity,Urine 1.033 (1.001-1.035); Squamous Epithelial Cell,Urine 1 /hpf (0-4); WBC,Urine 24 /hpf (0-5)
--- NOTE | 2021-07-11 12:57 | XR ---
EXAMINATION TYPE: XR pelvis AP view DATE OF EXAM: 07/11/2021 CLINICAL HISTORY: Pain, suspected recent trauma. TECHNIQUE: A single AP view of the pelvis is obtained. COMPARISON: CT abdomen pelvis February 22, 2019. FINDINGS: There is no acute displaced fracture evident in the pelvis. Slight asymmetry to the sacroi liac joints may be projectional. Pubic symphysis is intact. Moderate axial joint space loss both hips is redemonstrated. Surgical clips overlie the bilateral pelvis and lower abdomen. IMPRESSION: There is no acute displaced fracture in the pelvis.
--- NOTE | 2021-07-11 12:58 | XR ---
EXAMINATION TYPE: XR chest 2V DATE OF EXAM: 07/11/2021 COMPARISON: 04/14/2021 INDICATION: Altered mental status UTI TECHNIQUE: Frontal and lateral views of the chest are obtained. FINDINGS: The heart size is normal. Pacemaker overlies left chest. The pulmonary vasculature is normal. No suspicious focal consolidation is evident.. IMPRESSION: 1. No acute pulmonary process.
[2021-07-11 13:59] LABS: ALT 12 U/L (4-34); AST 23 U/L (14-36); African American GFR (CKD) >90 (>60 ml/min/1.73 sqM); Albumin 3.3 g/dL (3.5-5.0); Alkaline Phosphatase 87 U/L (38-126); Anion Gap 5 mmol/L; Blood Urea Nitrogen 18 mg/dL (7-17); Calcium 8.9 mg/dL (8.4-10.2); Carbon Dioxide 33 mmol/L (22-30); Chloride 104 mmol/L (98-107); Glucose 100 mg/dL (74-99); Non-African American GFR(CKD) >90 (>60 ml/min/1.73 sqM); Potassium 3.6 mmol/L (3.5-5.1); Sodium 142 mmol/L (137-145); Total Bilirubin 0.9 mg/dL (0.2-1.3); Total Protein 7.5 g/dL (6.3-8.2)
[2021-07-11] MEDS ORDERED: NALOXONE 0.4 MG/ML 1 ML VIAL IV PRN (15:26)
--- NOTE | 2021-07-11 15:28 | ED ---
General Adult HPI - General Chief complaint: Urogenital Stated complaint: UTI Time Seen by Provider: 07/11/21 11:18 Source: EMS, RN notes reviewed Limitations: altered mental status - History of Present Illness Initial comments: 80-year-old female with a past medical history of dementia, hyperlipidemia, hypertension presents to the emergency room for a chief complaint of possible UTI. Patient is a poor historian and was brought in by EMS.patient was a little more confused than normal and her daughter called her doctor's office. The nurse recommended they bring her into the emergency room to evaluate for a UTI. Family members not with patient.Patient has no other complaints at this time including shortness of breath, chest pain, abdominal pain, nausea or vomiting, headache, or visual changes. - Related Data Home Medications Medication Instructions Recorded Confirmed Donepezil HCl 10 mg PO DAILY 03/13/15 07/11/21 Omeprazole 20 mg PO HS 03/13/15 07/11/21 Tolterodine ER [Detrol LA] 4 mg PO DAILY 03/13/15 07/11/21 atenoloL [Atenolol] 50 mg PO BID 03/13/15 07/11/21 Simvastatin [Zocor] 40 mg PO HS 07/11/21 07/11/21 Allergies Allergy/AdvReac Type Severity Reaction Status Date / Time influenza virus vaccine, Allergy Rash/Hives Verified 07/11/21 12:02 specific [influenza virus vacc,specific] Penicillins Allergy Rash/Hives Verified 07/11/21 12:02 Review of Systems ROS Statement: Those systems with pertinent positive or pertinent negative responses have been documented in the HPI. ROS Other: All systems not noted in ROS Statement are negative. Past Medical History Past Medical History: Cancer, Dementia, Eye Disorder, GERD/Reflux, Hyperlipidemia, Hypertension, Memory Impairment, Syncope Additional Past Medical History / Comment(s): HX LT BREAST CA. PAST HX OF SYNCOPE, STATES MEMORY PROBLEMS, rt cataract. alzhemiers History of Any Multi-Drug Resistant Organisms: None Reported Past Surgical History: Breast Surgery, Section, Hysterectomy, Pacemaker, Tonsillectomy Additional Past Surgical History / Comment(s): C-S X3. LT BREAST LUMPECTOMY. Past Anesthesia/Blood Transfusion Reactions: No Reported Reaction Type of Cardiac Device: Permanent Pacemaker Device Placement Date:: 05-25-16 [employer] Past Psychological History: No Psychological Hx Reported Past Alcohol Use History: None Reported Past Drug Use History: None Reported - Past Family History Father History Unknown: Yes Family Medical History: Eye Disorder Mother History Unknown: Yes Family Medical History: No Reported History General Exam Limitations: altered mental status General appearance: alert, in no apparent distress Head exam: Present: atraumatic Eye exam: Present: normal appearance, PERRL, EOMI. Absent: scleral icterus, conjunctival injection ENT exam: Present: normal exam Neck exam: Present: normal inspection, full ROM. Absent: tenderness Respiratory exam: Present: normal lung sounds bilaterally. Absent: respiratory distress, wheezes Cardiovascular Exam: Present: regular rate, normal rhythm, normal heart sounds GI/Abdominal exam: Present: soft, normal bowel sounds. Absent: distended, tenderness Course Vital Signs 07/11/21 07/11/21 11:19 13:30 Temperature 96.6 F L Pulse Rate 61 65 Respiratory 18 18 Rate Blood Pressure 165/80 142/69 O2 Sat by Pulse 92 L 93 L Oximetry Medical Decision Making - Medical Decision Making vitals are stable. Patient is well-appearing. CBC and CMP unremarkable. However patient does have evidence of a urinary tract infection. Chest x-ray and pelvis x-ray are negative. Patient does have a large Stage III decubitus ulcer noted. case was discussed with patient's daughter. Patient's daughter states they are not able to care for her at home. She currently lives with her elderly and is bedbound. He is not able to turn her. Patient's daug hter stopped by once today at 5:00 PM when she gets out of work. Daughter is very concerned that patient is requiring more care than they can give and she is not in a safe environment. Case was discussed with Dr. Everett, does agree to admit patient. requests consult to Dr Dumas for UTI - Lab Data Result diagrams: 07/11/21 12:16 07/11/21 13:23 Lab Results 07/11/21 07/11/21 07/11/21 Range/Units 12:16 12:16 13:23 WBC 11.8 H (3.8-10.6) k/uL RBC 5.21 (3.80-5.40) m/uL Hgb 14.3 (11.4-16.0) gm/dL Hct 47.1 H (34.0-46.0) % MCV 90.3 (80.0-100.0) fL MCH 27.4 (25.0-35.0) pg MCHC 30.3 L (31.0-37.0) g/dL RDW 14.0 (11.5-15.5) % Plt Count 187 (150-450) k/uL MPV 8.5 Neutrophils % 80 % Lymphocytes % 12 % Monocytes % 6 % Eosinophils % 1 % Basophils % 1 % Neutrophils # 9.5 H (1.3-7.7) k/uL Lymphocytes # 1.4 (1.0-4.8) k/uL Monocytes # 0.7 (0-1.0) k/uL Eosinophils # 0.1 (0-0.7) k/uL Basophils # 0.1 (0-0.2) k/uL Hypochromasia Slight Sodium 142 (137-145) mmol/L Potassium 3.6 (3.5-5.1) mmol/L Chloride 104 (98-107) mmol/L Carbon Dioxide 33 H (22-30) mmol/L Anion Gap 5 mmol/L BUN 18 H (7-17) mg/dL Creatinine 0.51 L (0.52-1.04) mg/dL Est GFR (CKD-EPI)AfAm >90 (>60 ml/min/1.73 sqM) Est GFR (CKD-EPI)NonAf >90 (>60 ml/min/1.73 sqM) Glucose 100 H (74-99) mg/dL Calcium 8.9 (8.4-10.2) mg/dL Total Bilirubin 0.9 (0.2-1.3) mg/dL AST 23 (14-36) U/L ALT 12 (4-34) U/L Alkaline Phosphatase 87 (38-126) U/L Total Protein 7.5 (6.3-8.2) g/dL Albumin 3.3 L (3.5-5.0) g/dL Urine Color Yellow Urine Appearance Clear (Clear) Urine pH 6.0 (5.0-8.0) Ur Specific [place] 1.033 (1.001-1.035) Urine Protein 1+ H (Negative) Urine Glucose (UA) Negative (Negative) Urine Ketones 1+ H (Negative) Urine Blood Negative (Negative) Urine Nitrite Negative (Negative) Urine Bilirubin Negative (Negative) Urine Urobilinogen 3.0 (<2.0) mg/dL Ur Leukocyte Esterase Moderate H (Negative) Urine WBC 24 H (0-5) /hpf Ur Squamous Epith Cells 1 (0-4) /hpf Urine Mucus Rare H (None) /hpf Disposition Clinical Impression: Decubitus ulcer, Urinary tract infection, Altered mental state, Failure to thrive, Bedbound Disposition: ADMITTED IP TO THIS HOSP Is patient prescribed a controlled substance at d/c from ED?: No Referrals: Edwin Frausto DO [Primary Care Provider] - 1-2 days Time of Disposition: 15:34
[2021-07-11] MEDS ORDERED: cefTRIAXone IN SWFI 1,000 MG/10 ML SYRINGE IVP STA (15:36)
[2021-07-11] MEDS: SODIUM CHLORIDE 0.9% 1,000 ML IV SCH (17:37)
[2021-07-11] MEDS: PANTOPRAZOLE 40 MG TABLET PO SCH (21:16)
[2021-07-11] MEDS: ATORVASTATIN 20 MG TAB PO SCH (21:16)
[2021-07-11] MEDS: atenoloL 50 MG TAB PO SCH (21:16)
[2021-07-12] MEDS: SODIUM CHLORIDE 0.9% 1,000 ML IV SCH ×2 (06:12→17:15)
[2021-07-12] MEDS: atenoloL 50 MG TAB PO SCH ×2 (09:21→20:30)
[2021-07-12] MEDS: DONEPEZIL 10 MG TAB PO SCH (09:21)
[2021-07-12] MEDS: OXYBUTYNIN 10 MG TAB.ER.24 PO SCH (09:21)
[2021-07-12] MEDS ORDERED: QUEtiapine 25 MG TAB PO PRN (13:57)
--- NOTE | 2021-07-12 14:04 | P.HPIM ---
History of Present Illness Patient is a pleasant 80-year-old female with history of dementia which appeared to be advanced probably vascular dementia came in with complains of lethargy doesn't have any fevers does have some leukocytosis chest x-ray did not show any pneumonia urine is not much impressive day but does have some white blood cell counts Count in the urine although patient appears dehydrated. Patient also has a dried and noninfected scar which looks like and a sharp on the right that plantar aspect of the foot and in the sacral area. Patient lives with her who is 80. Ears old and cannot take care of her anymore family is requesting placement for the patient. Patient apparently was more confused patient has his of lucidity and non-lucid phases. denied any symptoms of UTI or pneumonia, denied any abdominal pain or diarrhea. REVIEW OF SYSTEMS: CONSTITUTIONAL: No fever, no malaise, no fatigue. HEENT: No recent visual problems or hearing problems. Denied any sore throat. CARDIOVASCULAR: No chest pain, orthopnea, PND, no palpitations, no syncope. PULMONARY: No shortness of breath, no cough, no hemoptysis. GASTROINTESTINAL: No diarrhea, no nausea, no vomiting, no abdominal pain. NEUROLOGICAL: No headaches, no weakness, no numbness. HEMATOLOGICAL: Denies any bleeding or petechiae. GENITOURINARY: Denies any burning micturition, frequency, or urgency. MUSCULOSKELETAL/RHEUMATOLOGICAL: Denies any joint pain, swelling, or any muscle pain. ENDOCRINE: Denies any polyuria or polydipsia. The rest of the 14-point review of systems is negative. PHYSICAL EXAMINATION: GENERAL: The patient is alert and oriented x2, not in any acute distress. Thin built HEENT: Pupils are round and equally reacting to light. EOMI. No scleral icterus. No conjunctival pallor. Normocephalic, atraumatic. No pharyngeal tammi thema. No thyromegaly. CARDIOVASCULAR: S1 and S2 present. No murmurs, rubs, or gallops. PULMONARY: Chest is clear to auscultation, no wheezing or crackles. ABDOMEN: Soft, nontender, nondistended, normoactive bowel sounds. No palpable organomegaly. MUSCULOSKELETAL: No joint swelling or deformity. EXTREMITIES: No cyanosis, clubbing, or pedal edema. NEUROLOGICAL: Gross neurological examination did not reveal any focal deficits. SKIN: dry ulcers as mentioned above Assessment and plan -Altered mental status: Possibly secondary to worsening dementia may have a competent of metabolic encephalopathy from dehydration the possibility of UTI causing her confusion is low although I'll continue the antibiotics until patient was evaluated by infectious disease was consulted from ER already. -Mild dehydration patient is receiving IV fluids which she'll continue to tomorrow morning. -Local wound care for her decubitus ulcers may need debridement further management as per infectious disease recommendations -Gases patient reflux disease -Hyperlipidemia -Advanced dementia probably vascular dementia DVT prophylaxis: Lovenox low-dose subcutaneous Past Medical History Past Medical History: Cancer, Dementia, Eye Disorder, GERD/Reflux, Hyperlipidemia, Hypertension, Memory Impairment, Syncope Additional Past Medical History / Comment(s): HX LT BREAST CA. PAST HX OF SYNCOPE, STATES MEMORY PROBLEMS, rt cataract. alzhemiers History of Any Multi-Drug Resistant Organisms: None Reported Past Surgical History: Breast Surgery, Section, Hysterectomy, Pacemaker, Tonsillectomy Additional Past Surgical History / Comment(s): C-S X3. LT BREAST LUMPECTOMY. Past Anesthesia/Blood Transfusion Reactions: No Reported Reaction Type of Cardiac Device: Permanent Pacemaker Device Placement Date:: 05-25-16 [employer] [place] Past Psychological History: No Psychological Hx Reported Smoking Status: Never smoker Past Alcohol Use History: None Reported Past Drug Use History: None Reported - Past Family History Father History Unknown: Yes Family Medical History: Eye Disorder Mother History Unknown: Yes Family Medical History: No Reported History Medications and Allergies Home Medications Medication Instructions Recorded Confirmed Type Donepezil HCl 10 mg PO DAILY 03/13/15 07/11/21 History Omeprazole 20 mg PO HS 03/13/15 07/11/21 History Tolterodine ER [Detrol LA] 4 mg PO DAILY 03/13/15 07/11/21 History atenoloL [Atenolol] 50 mg PO BID 03/13/15 07/11/21 History Simvastatin [Zocor] 40 mg PO HS 07/11/21 07/11/21 History Allergies Allergy/AdvReac Type Severity Reaction Status Date / Time influenza virus vaccine, Allergy Rash/Hives Verified 07/11/21 12:02 specific [influenza virus vacc,specific] Penicillins Allergy Rash/Hives Verified 07/11/21 12:02 Physical Exam Vitals: Vital Signs Temp Pulse Pulse Resp BP BP Pulse Ox 07/12/21 07:08 97.8 F 60 18 137/70 96 07/12/21 02:00 66 18 134/62 94 L 07/11/21 23:36 98.0 F 67 18 90/59 100 07/11/21 20:00 96.9 F L 64 15 119/79 93 L 07/11/21 17:39 98.9 F 62 20 148/79 99 Intake and Output 07/11/21 07/12/21 07/12/21 22:59 06:59 14:59 Intake Total 240 600 Balance 240 600 Intake: Intake, IV Titration 600 Amount Sodium Chloride 0.9% 1, 600 000 ml @ 75 mls/hr IV . [id number] [facility] Rx#:[id number] Oral 240 Other: Voiding Method Diaper External Catheter Incontinent # Voids 3 Weight 62.142 kg Results CBC & Chem 7: 07/11/21 12:16 07/11/21 13:23 Labs: Microbiology - Last 24 Hours (Table) 07/11/21 12:16 Urine Culture - Preliminary Urine,Catheterized Thrombosis Risk Factor Assmnt - Choose All That Apply Each Risk Factor Represents 3 Points: Age 75 years or older Thrombosis Risk Factor Assessment Total Risk Factor Score: 3 Thrombosis Risk Factor Assessment Level: Moderate Risk
[2021-07-12] MEDS: ATORVASTATIN 20 MG TAB PO SCH (20:30)
[2021-07-12] MEDS: PANTOPRAZOLE 40 MG TABLET PO SCH (20:30)
--- NOTE | 2021-07-12 22:56 | P.CONS ---
History of Present Illness - Reason for Consult Consult date: 07/12/21 Urinary tract infection and sacral pressure ulcer Requesting physician: Chay Everett - Chief Complaint confusion x 1 day - History of Present Illness Patient is 80-year-old female with a past medical history taken for dementia hypertension hyperlipidemia patient was brought into the ER for evaluation of the patient being more confused than normal and the patient daughter called the patient PCP office who recommended the patient to go to the ER, patient on presentation to the hospital was afebrile and no fever have been recorded subsequently did have an elevated white and of 11.8 with a left shift mildly elevated. BUN and creatinine has been normal she did have a positive UA with moderate leukocyte esterase and elevated WBC cultures are currently pending patient did have a chest x-ray no acute cardiopulmonary process patient was given a dose of Rocephin has been admitted to the hospital infectious disease was consulted for further management of antibiotic therapy x-ray of the pelvis was negative for any fracture. Patient at time evaluation denies any chest pain or shortness with no cough no abdominal pain no diarrhea she did have a wound to the sacral area however denies any pain to the sacral wound area patient herself very good historian so most information has been obtained from review the chart and talking to the nursing staff Review of Systems Positive points has been mentioned in HPI complete review could not be obtained because of his underlying mental status Past Medical History Past Medical History: Cancer, Dementia, Eye Disorder, GERD/Reflux, Hyperlipidemi a, Hypertension, Memory Impairment, Syncope Additional Past Medical History / Comment(s): HX LT BREAST CA. PAST HX OF SYNCOPE, STATES MEMORY PROBLEMS, rt cataract. alzhemiers History of Any Multi-Drug Resistant Organisms: None Reported Past Surgical History: Breast Surgery, Section, Hysterectomy, Pacemaker, Tonsillectomy Additional Past Surgical History / Comment(s): C-S X3. LT BREAST LUMPECTOMY. Past Anesthesia/Blood Transfusion Reactions: No Reported Reaction Type of Cardiac Device: Permanent Pacemaker Device Placement Date:: 05-25-16 [employer] Past Psychological History: No Psychological Hx Reported Smoking Status: Never smoker Past Alcohol Use History: None Reported Past Drug Use History: None Reported - Past Family History Father History Unknown: Yes Family Medical History: Eye Disorder Mother History Unknown: Yes Family Medical History: No Reported History Medications and Allergies Home Medications Medication Instructions Recorded Confirmed Type Donepezil HCl 10 mg PO DAILY 12/02/15 04/01/22 History Omeprazole 20 mg PO HS 03/13/15 07/11/21 History Tolterodine ER [Detrol LA] 4 mg PO DAILY 03/13/15 07/11/21 History atenoloL [Atenolol] 50 mg PO BID 03/13/15 07/11/21 History Simvastatin [Zocor] 40 mg PO HS 07/11/21 07/11/21 History Allergies Allergy/AdvReac Type Severity Reaction Status Date / Time influenza virus vaccine, Allergy Rash/Hives Verified 07/11/21 12:02 specific [influenza virus vacc,specific] Penicillins Allergy Rash/Hives Verified 07/11/21 12:02 Physical Exam Vitals: Vital Signs Temp Pulse Pulse Resp BP BP Pulse Ox 07/12/21 07:08 97.8 F 60 18 137/70 96 07/12/21 02:00 66 18 134/62 94 L 07/11/21 23:36 98.0 F 67 18 90/59 100 07/11/21 20:00 96.9 F L 64 15 119/79 93 L 07/11/21 17:39 98.9 F 62 20 148/79 99 Intake and Output 07/11/21 07/12/21 07/12/21 22:59 06:59 14:59 Intake Total 240 600 Balance 240 600 Intake: Intake, IV Titration 600 Amount Sodium Chloride 0.9% 1, 600 000 ml @ 75 mls/hr IV . [id number] [facility] Rx#:[id number] Oral 240 Other: Voiding Method Diaper External Catheter Incontinent # Voids 3 Weight 62.142 kg GENERAL DESCRIPTION: Elderly female lying in bed, no distress. No tachypnea or accessory muscle of respiration use. HEENT: Shows Pallor , no scleral icterus. Oral mucous membrane is dry. No pharyngeal erythema or thrush NECK: Trachea central, no thyromegaly. LUNGS: Unlabored breathing. Clear to auscultation anteriorly. No wheeze or crackle. HEART: S1, S2, regular rate and rhythm. No loud murmur ABDOMEN: Soft, no tenderness , guarding or rigidity, no organomegaly EXTREMITIES: No edema of feet. SKIN: No rash, no masses palpable. Patient did have unstageable sacral pressure ulcer no significant surrounding redness or drainage NEUROLOGICAL: The patient is awake, alert, oriented x2, mood and affect normal. Results CBC & Chem 7: 07/11/21 12:16 07/11/21 13:23 Labs: Microbiology - Last 24 Hours (Table) 07/11/21 12:16 Urine Culture - Preliminary Urine,Catheterized Assessment and Plan (1) Decubitus ulcer Current Visit: Yes Status: Acute Code(s): L89.90 - PRESSURE ULCER OF UNSPECIFIED SITE, UNSPECIFIED STAGE SNOMED Code(s): 1011288213 (2) Urinary tract infection Current Visit: Yes Status: Acute Code(s): N39.0 - URINARY TRACT INFECTION, SITE NOT SPECIFIED SNOMED Code(s): 96521318 Plan: 1patient presented to hospital with confusion and weakness which is likely multifactorial possibly metabolic underlying UTI not entirely excluded likely from enteric gram-negative pathogen. 2patient with a unstageable sacral pressure ulcer with the black Esher but no evidence of any surrounding cellulitis. 3penicillin allergy that would limit the number of antibiotics safe to use. 4we will start the patient on Rocephin 1 g daily while waiting for the culture to finalize. 5General surgery evaluation for debridement of the sacral wound and any culture if there was any purulence. For now keep the area of the pressure and dry We will follow on clinical condition and cultures to further adjust medication if needed Thank you for this consultation will follow this patient along with you Time with Patient: Greater than 30
[2021-07-13] MEDS: SODIUM CHLORIDE 0.9% 1,000 ML IV SCH (08:32)
[2021-07-13] MEDS: OXYBUTYNIN 10 MG TAB.ER.24 PO SCH (08:34)
[2021-07-13] MEDS: ENOXAPARIN 40 MG/0.4 ML SYRINGE SQ SCH (08:34)
[2021-07-13] MEDS: DONEPEZIL 10 MG TAB PO SCH (08:34)
[2021-07-13] MEDS: atenoloL 50 MG TAB PO SCH ×2 (08:34→19:18)
[2021-07-13 10:05] LABS: HCT 40.3 % (37.2-46.3); HGB 11.7 g/dL (12.0-15.0); MCH 26.8 pg (27.0-32.0); MCV 92.2 fL (80.0-97.0); Mean Platelet Volume 10.6 fL (9.5-12.2); NRBC Per 100 WBC 0 /100 WBCS (0.0-0.0); Platelet Count 155 X 10*3/uL (140-440); RBC 4.37 X 10*6/uL (4.10-5.20); RDW 14.2 % (11.5-14.5); WBC 8.19 X 10*3/uL (4.50-10.00)
--- NOTE | 2021-07-13 12:29 | P.GSCN ---
History of Present Illness Consult date: 07/13/21 Reason for Consult: Decubitus ulcer History of present illness: This is a 1-year-old female who is admitted to the hospital for UTI, dementia. The patient has had some failure to thrive. Patient wasa have a decubitus ulcer on her sacrum. She also has a ulcer pressure spot on her left foot. The patient does not know if she's had an decubitus ulcer before. She is getting limited medical history. Past Medical History Past Medical History: Cancer, Dementia, Eye Disorder, GERD/Reflux, Hyperlipidemi a, Hypertension, Memory Impairment, Syncope Additional Past Medical History / Comment(s): HX LT BREAST CA. PAST HX OF SYNCOPE, STATES MEMORY PROBLEMS, rt cataract. alzhemiers History of Any Multi-Drug Resistant Organisms: None Reported Past Surgical History: Breast Surgery, Section, Hysterectomy, Pacemaker, Tonsillectomy Additional Past Surgical History / Comment(s): C-S X3. LT BREAST LUMPECTOMY. Past Anesthesia/Blood Transfusion Reactions: No Reported Reaction Type of Cardiac Device: Permanent Pacemaker Device Placement Date:: 05-25-16 [employer] Past Psychological History: No Psychological Hx Reported Smoking Status: Never smoker Past Alcohol Use History: None Reported Past Drug Use History: None Reported - Past Family History Father History Unknown: Yes Family Medical History: Eye Disorder Mother History Unknown: Yes Family Medical History: No Reported History Medications and Allergies Home Medications Medication Instructions Recorded Confirmed Type Donepezil HCl 10 mg PO DAILY 03/13/15 07/11/21 History Omeprazole 20 mg PO HS 03/13/15 07/11/21 History Tolterodine ER [Detrol LA] 4 mg PO DAILY 03/13/15 07/11/21 History atenoloL [Atenolol] 50 mg PO BID 03/13/15 07/11/21 History Simvastatin [Zocor] 40 mg PO HS 07/11/21 07/11/21 History Allergies Allergy/AdvReac Type Severity Reaction Status Date / Time influenza virus vaccine, Allergy Rash/Hives Verified 07/11/21 12:02 specific [influenza virus vacc,specific] Penicillins Allergy Rash/Hives Verified 07/11/21 12:02 Surgical - Exam Vital Signs Temp Pulse Resp BP Pulse Ox 96.6 F L 61 18 165/80 92 L 07/11/21 11:19 07/11/21 11:19 07/11/21 11:19 07/11/21 11:19 07/11/21 11:19 - General no distress - Eyes PERRL - ENT normal pinna - Neck no masses - Respiratory normal expansion - Cardiovascular Rhythm: regular - Abdomen Abdomen: soft, non tender - Integumentary 3 x 5 cm decubitus ulcer with necrosis of skin on coccyx. There is also evidence of a pressure ulcer on the left foot. Results - Labs 07/13/21 06:11 07/11/21 13:23 Abnormal Lab Results - Last 24 Hours (Table) 07/13/21 Range/Units 06:11 Hgb 11.7 L (12.0-15.0) g/dL MCH 26.8 L (27.0-32.0) pg MCHC 29.0 L (32.0-37.0) g/dL Microbiology - Last 24 Hours (Table) 07/11/21 12:16 Urine Culture - Final Urine,Catheterized Assessment and Plan Assessment: Chronic decubitus ulcer with necrotic skin and subcutaneous fat. Patient will undergo debridement of ulcer on Wednesday.
[2021-07-13 12:46] LABS: African American GFR (CKD) 108.2 (60.0-200.0); Anion Gap 15.4 mmol/L (10.00-18.00); BUN/Creat Ratio 35.08 Ratio (12.00-20.00); Blood Urea Nitrogen 16.1 mg/dL (9.0-27.0); Calcium 8.3 mg/dL (8.7-10.3); Carbon Dioxide 17.5 mmol/L (20.0-27.5); Non-African American GFR(CKD) 93.4 (60.0-200.0); Potassium 3.5 mmol/L (3.5-5.5)
--- NOTE | 2021-07-13 16:45 | P.PN ---
Subjective Progress Note Date: 07/13/21 Principal diagnosis: Possible UTI and sacral pressure ulcer Patient is 80 year female has been brought into the hospital for weakness and confusion noticed to have some dehydration and possible UTI and a sacral pressure ulcer. On today's evaluation that is 07/13/2021, the patient is more awake and alert today, the patient is breathing comfortably on room air denies any chest pain shortness of breath or cough no nausea no vomiting no abdominal pain or diarrhea Objective - Vital Signs Vital signs: Vital Signs Temp 97.5 F L 07/13/21 07:06 Pulse 59 L 07/13/21 07:06 Resp 17 07/13/21 07:06 BP 114/69 07/13/21 07:06 Pulse Ox 91 L 07/13/21 07:06 Intake & Output 07/12/21 07/13/21 07/13/21 18:59 06:59 18:59 Intake Total 600 1100 650 Output Total 500 Balance 600 600 650 Intake: Intake, IV Titration 600 900 650 Amount Sodium Chloride 0.9% 1, 600 900 600 000 ml @ 75 mls/hr IV . [id number] [facility] Rx#:[id number] cefTRIAXone 1 gm In 50 Sodium Chloride 0.9% 50 ml @ 100 mls/hr IVPB Q24HR [facility] Rx#:[id number] Oral 200 Output: Urine 500 Other: Voiding Method External Catheter External Catheter Diaper Incontinent # Voids 2 # Bowel Movements 1 - Exam GENERAL DESCRIPTION: An elderly female lying in bed in no distress RESPIRATORY SYSTEM: Unlabored breathing , decreased breath sounds at bases HEART: S1 S2 regular rate and rhythm , ABDOMEN: Soft , no tenderness EXTREMITIES: No edema feet - Labs CBC & Chem 7: 07/13/21 06:11 07/13/21 06:11 Labs: Abnormal Lab Results - Last 24 Hours (Table) 07/13/21 07/13/21 Range/Units 06:11 06:11 Hgb 11.7 L (12.0-15.0) g/dL MCH 26.8 L (27.0-32.0) pg MCHC 29.0 L (32.0-37.0) g/dL Carbon Dioxide 17.5 L (20.0-27.5) mmol/L Creatinine 0.5 L (0.6-1.5) mg/dL BUN/Creatinine Ratio 35.08 H (12.00-20.00) Ratio Calcium 8.3 L (8.7-10.3) mg/dL Microbiology - Last 24 Hours (Table) 07/11/21 12:16 Urine Culture - Final Urine,Catheterized Assessment and Plan (1) Decubitus ulcer Current Visit: Yes Status: Acute Code(s): L89.90 - PRESSURE ULCER OF UNSPECIFIED SITE, UNSPECIFIED STAGE SNOMED Code(s): 4537526194 (2) Urinary tract infection Current Visit: Yes Status: Acute Code(s): N39.0 - URINARY TRACT INFECTION, S ITE NOT SPECIFIED SNOMED Code(s): 03084509 Plan: 1patient presented to hospital with confusion and weakness which is likely multifactorial possibly metabolic underlying UTI not entirely excluded likely from enteric gram-negative pathogen. 2patient with a unstageable sacral pressure ulcer with the black Esher but no evidence of any surrounding cellulitis. 3penicillin allergy that would limit the number of antibiotics safe to use. 4patient to continue with Rocephin 1 g daily while waiting for the culture to finalize. 5General surgery has seen the patient and possible plan for debridement on Wednesday. For now keep the area of the pressure and dry Family was at bedside and they were updated about her care Time with Patient: Less than 30
--- NOTE | 2021-07-13 17:21 | P.PN ---
Subjective Progress Note Date: 07/13/21 Patient is a pleasant 80-year-old female with history of dementia which appeared to be advanced probably vascular dementia came in with complains of lethargy doesn't have any fevers does have some leukocytosis chest x-ray did not show any pneumonia urine is not much impressive day but does have some white blood cell counts Count in the urine although patient appears dehydrated. Patient also has a dri ed and noninfected scar which looks like and a sharp on the right that plantar aspect of the foot and in the sacral area. Patient lives with her who is 79. Ears old and cannot take care of her anymore family is requesting placement for the patient. Patient apparently was more confused patient has his of lucidity and non-lucid phases. denied any symptoms of UTI or pneumonia, denied any abdominal pain or diarrhea. 07/13/2021 Patient is seen in follow-up today continues to be confused although able to answer questions and follow commands appropriately. General surgery consulted for possible debridement of the decubitus ulcer and patient also noted to have an ulcer plantar aspect of the right foot. To continue with local wound care with ID also following. Patient is maintained on IV antibiotics and will continue. PT/OT to evaluate and case management and social work will be consulted for possible ECF. Review of systems: Constitutional: No reports of fatigue, fever, or chills Cardiovascular: No reports of chest pain or palpitations Respiratory: No reports of shortness of breath or cough GI: No reports of nausea, vomiting, or diarrhea : No reports of dysuria or retention Neurovascular: No reports of weakness or numbness All medications have been reviewed Active Medications Atenolol (Atenolol 50 Mg Tab) 50 mg PO BID [facility] Last Admin: 07/13/21 08:34 Dose: 50 mg Documented by: Atorvastatin Calcium (Atorvastatin 20 Mg Tab) 20 mg PO HS [facility] Last Admin: 07/12/21 20:30 Dose: 20 mg Documented by: Donepezil HCl (Donepezil 10 Mg Tab) 10 mg PO DAILY [facility] Last Admin: 07/13/21 08:34 Dose: 10 mg Documented by: Enoxaparin Sodium (Enoxaparin 40 Mg/0.4 Ml Syringe) 40 mg SQ DAILY [facility] Last Admin: 07/13/21 08:34 Dose: 40 mg Documented by: Sodium Chloride (Saline 0.9%) 1,000 mls @ 75 mls/hr IV .[id number] [facility] Last Admin: 07/13/21 08:32 Dose: 75 mls/hr Documented by: Ceftriaxone Sodium 1 gm/ (Sodium Chloride) 50 mls @ 100 mls/hr IVPB Q24HR [facility]; Protocol Last Admin: 07/13/21 08:33 Dose: 100 mls/hr Documented by: Naloxone HCl (Naloxone 0.4 Mg/Ml 1 Ml Vial) 0.2 mg IV Q2M PRN PRN Reason: Opioid Reversal Oxybutynin Chloride (Oxybutynin 10 Mg Tab.Er.24) 10 mg PO DAILY [facility] Last Admin: 07/13/21 08:34 Dose: 10 mg Documented by: Pantoprazole Sodium (Pantoprazole 40 Mg Tablet) 40 mg PO HS [facility] Last Admin: 07/12/21 20:30 Dose: 40 mg Documented by: Quetiapine Fumarate (Quetiapine 25 Mg Tab) 12.5 mg PO HS PRN PRN Reason: Agitation PHYSICAL EXAMINATION: GENERAL: The patient is alert and oriented x2, not in any acute distress. Thin built HEENT: Pupils are round and equally reacting to light. EOMI. No scleral icterus. No conjunctival pallor. Normocephalic, atraumatic. No pharyngeal erythema. No th yromegaly. CARDIOVASCULAR: S1 and S2 present. No murmurs, rubs, or gallops. PULMONARY: Chest is clear to auscultation, no wheezing or crackles. ABDOMEN: Soft, nontender, nondistended, normoactive bowel sounds. No palpable organomegaly. MUSCULOSKELETAL: No joint swelling or deformity. EXTREMITIES: No cyanosis, clubbing, or pedal edema. NEUROLOGICAL: Gross neurological examination did not reveal any focal deficits. SKIN: dry ulcers as mentioned above Assessment: -Altered mental status: Possibly secondary to worsening dementia may have a competent of metabolic encephalopathy from dehydration, the possibility of UTI causing her confusion is low although I'll continue the antibiotics until patient cultures are finalized. infectious disease following -Mild dehydration patient is receiving IV fluids which will continue and decrease the dose. Repeat am labs -Local wound care for her decubitus ulcers, plan for debridement with surgery on Wednesday -Gastroesophageal reflux disease -Hyperlipidemia -Advanced dementia probably vascular dementia -DVT prophylaxis: Lovenox low-dose subcutaneous -Full code Plan: Recommend continue with current medications and close monitoring. Patient to continue with local wound care and general surgery following for possible debridement of her extensive decubitus ulcers. Tentatively scheduled for Wednesday. ID following and patient is continued on IV ceftriaxone and will continue. Patient is continued on gentle IV hydration and will continue for now with follow-up labs. Urine culture was negative for any growth thus far and patient is maintained on IV ceftriaxone. The impression and plan of care has been dictated by Yasmine Sung, Nurse Practitioner as directed. Dr. Tonie MD I have performed a history and examination and MDM of this patient, discussed the same with the dictator, and agree with the dictator's assessment and plan as written ,documented as a scribe. Based on total visit time, I have performed more than 50% of the visit. Objective - Vital Signs Vital signs: Vital Signs Temp 97.5 F L 07/13/21 07:06 Pulse 59 L 07/13/21 07:06 Resp 17 07/13/21 07:06 BP 114/69 07/13/21 07:06 Pulse Ox 91 L 07/13/21 07:06 Intake & Output 07/12/21 07/13/21 07/13/21 18:59 06:59 18:59 Intake Total 600 1100 Output Total 500 Balance 600 600 Intake: Intake, IV Titration 600 900 Amount Sodium Chloride 0.9% 1, 600 900 000 ml @ 75 mls/hr IV . [id number] [facility] Rx#:[id number] Oral 200 Output: Urine 500 Other: Voiding Method External Catheter External Catheter # Voids 2 # Bowel Movements 1 - Labs CBC & Chem 7: 07/13/21 06:11 07/13/21 06:11 Labs: Microbiology - Last 24 Hours (Table) 07/11/21 12:16 Urine Culture - Final Urine,Catheterized
[2021-07-13] MEDS: ATORVASTATIN 20 MG TAB PO SCH (19:18)
[2021-07-13] MEDS: PANTOPRAZOLE 40 MG TABLET PO SCH (19:18)
[2021-07-14] MEDS: SODIUM CHLORIDE 0.9% 1,000 ML IV SCH ×2 (05:53→12:13)
[2021-07-14 06:41] LABS: Basophils % (A) 0 %; Eosinophils # (A) 0.1 k/uL (0-0.7); Eosinophils % (A) 1 %; HCT 38.1 % (34.0-46.0); HGB 11.9 gm/dL (11.4-16.0); Hypochromasia Slight; Lymphocytes # (A) 0.8 k/uL (1.0-4.8); Lymphocytes % (A) 13 %; MCH 28.1 pg (25.0-35.0); MCHC 31.1 g/dL (31.0-37.0); MCV 90.3 fL (80.0-100.0); Mean Platelet Volume 8.5; Monocytes # (A) 0.5 k/uL (0-1.0); Monocytes % (A) 8 %; Neutrophils # (A) 5.1 k/uL (1.3-7.7); Neutrophils % (A) 77 %; Platelet Count 160 k/uL (150-450); RBC 4.22 m/uL (3.80-5.40); RDW 14.1 % (11.5-15.5); WBC 6.6 k/uL (3.8-10.6)
[2021-07-14 07:14] LABS: African American GFR (CKD) >90 (>60 ml/min/1.73 sqM); Anion Gap 3 mmol/L; Blood Urea Nitrogen 10 mg/dL (7-17); Calcium 7.9 mg/dL (8.4-10.2); Carbon Dioxide 24 mmol/L (22-30); Chloride 110 mmol/L (98-107); Glucose 95 mg/dL (74-99); Non-African American GFR(CKD) >90 (>60 ml/min/1.73 sqM); Sodium 137 mmol/L (137-145)
[2021-07-14] MEDS: atenoloL 50 MG TAB PO SCH ×2 (10:58→20:18)
[2021-07-14] MEDS: OXYBUTYNIN 10 MG TAB.ER.24 PO SCH (10:58)
[2021-07-14] MEDS: DONEPEZIL 10 MG TAB PO SCH (10:58)
[2021-07-14] MEDS: ENOXAPARIN 40 MG/0.4 ML SYRINGE SQ SCH (10:59)
[2021-07-14 13:14] VITALS: BMI 23.5
[2021-07-14] MEDS ORDERED: Potassium Replacement Protocol 1 EACH MISC MISCELLANE PRN (13:48)
[2021-07-14] MEDS ORDERED: Magnesium Replacement Protocol 1 EACH MISC MISCELLANE PRN (13:49)
--- NOTE | 2021-07-14 14:07 | P.PN ---
Subjective Progress Note Date: 07/14/21 This is an 80-year-old female admitted with increasing weakness, confusion, dehydration, possible acute UTI, sacral pressure ulcer and multiple other medical issues. Maintained on IV antibiotics as per infectious disease. After for debridement on Wednesday. Afebrile, normal WBC, maintaining O2 sats in the 90s on room air. Potassium 3, renal function stable. Objective - Vital Signs Vital signs: Vital Signs Temp 97.9 F 07/14/21 07:18 Pulse 62 07/14/21 07:18 Resp 14 07/14/21 07:18 BP 146/70 07/14/21 07:18 Pulse Ox 95 07/14/21 07:18 Intake & Output 07/13/21 07/14/21 07/14/21 18:59 06:59 18:59 Intake Total 650 1100 Balance 650 1100 Weight 62.142 kg Intake: Intake, IV Titration 650 900 Amount Sodium Chloride 0.9% 1, 600 900 000 ml @ 75 mls/hr IV . [id number] [facility] Rx#:[id number] cefTRIAXone 1 gm In 50 Sodium Chloride 0.9% 50 ml @ 100 mls/hr IVPB Q24HR [facility] Rx#:[id number] Oral 200 Other: Voiding Method Diaper Diaper Incontinent Incontinent # Voids 2 # Bowel Movements 1 - Exam PHYSICAL EXAM: VITAL SIGNS: [As above] GENERAL: Sitting up in bed, no acute distress, alert and oriented to person and place. HEENT: Conjunctivae normal. eyes normal. Oral mucosa dry NECK: Supple,No JVD. CARDIOVASCULAR: S1, S2 regular. No murmur RESPIRATION: Breath sounds diminished in the bases. No rhonchi or crackles. No bronchial breathing. ABDOMEN: Soft, nontender . No guarding. no masses palpable. No ascites, No hepatosplenomegaly.Bowel sounds heard. LEGS: No edema. no swelling PSYCHIATRY: Alert and oriented X3, mood and affect normal. NERVOUS SYSTEM: Cranial N 2-12 grossly normal. Moves all 4 limbs. Diffuse weakness No focal deficits. Strength and sensation grossly intact. Skin: Warm and dry, no rash. Unstageable sacral pressure ulcer, black eschar without drainage or redness - Labs CBC & Chem 7: 07/14/21 06:12 07/14/21 06:12 Labs: Abnormal Lab Results - Last 24 Hours (Table) 07/14/21 07/14/21 Range/Units 06:12 06:12 Lymphocytes # 0.8 L (1.0-4.8) k/uL Potassium 3.0 L (3.5-5.1) mmol/L Chloride 110 H (98-107) mmol/L Creatinine 0.39 L (0.52-1.04) mg/dL Calcium 7.9 L (8.4-10.2) mg/dL Assessment and Plan Assessment: Altered mental status, possibly secondary to worsening dementia, in a patient with advanced dementia, possibly vascular dementia, possible component of metabolic encephalopathy secondary to dehydration as well as possible UTI Mild dehydration, secondary to the above Sacral decubitus ulcer unstageable Gastroesophageal reflux disease Hyperlipidemia Plan: Continue on current medication regime ,monitoring and symptomatic treatment. Gentle IV fluid hydration. Local wound care/ IV antibiotics as per infectious disease. Debridement scheduled for Wednesday. PT/OT with ECF at discharge. The impression and plan of care has been dictated as directed. : I performed a history and examination of this patient, discussed the same with the dictator. I agree with the dictator's note ,documented as a scribe. Any additional findings or plans will be noted.
--- NOTE | 2021-07-14 18:22 | P.PN ---
Progress Note - Text Progress Note Date: 07/14/21 Patient main stable. We will plan for debridement of decubitus ulcer on Wednesday.
--- NOTE | 2021-07-14 19:11 | P.PN ---
Subjective Progress Note Date: 07/14/21 Principal diagnosis: Possible UTI and sacral pressure ulcer Patient is 80 year female has been brought into the hospital for weakness and confusion noticed to have some dehydration and possible UTI and a sacral pressure ulcer. On today's evaluation that is 07/14/2021, the patient remains to be afebrile, the patient is breathing comfortably on room air, the patient denies any chest pain shortness of breath or cough no nausea no vomiting no abdominal pain or diarrhea Objective - Vital Signs Vital signs: Vital Signs Temp 97.9 F 07/14/21 07:18 Pulse 62 07/14/21 07:18 Resp 14 07/14/21 07:18 BP 146/70 07/14/21 07:18 Pulse Ox 95 07/14/21 07:18 Intake & Output 07/13/21 07/14/21 07/14/21 18:59 06:59 18:59 Intake Total 650 1100 Balance 650 1100 Weight 62.142 kg Intake: Intake, IV Titration 650 900 Amount Sodium Chloride 0.9% 1, 600 900 000 ml @ 75 mls/hr IV . [id number] [facility] Rx#:[id number] cefTRIAXone 1 gm In 50 Sodium Chloride 0.9% 50 ml @ 100 mls/hr IVPB Q24HR [facility] Rx#:[id number] Oral 200 Other: Voiding Method Diaper Diaper Incontinent Incontinent # Voids 2 # Bowel Movements 1 - Exam GENERAL DESCRIPTION: An elderly female lying in bed in no distress RESPIRATORY SYSTEM: Unlabored breathing , decreased breath sounds at bases HEART: S1 S2 regular rate and rhythm , ABDOMEN: Soft , no tenderness EXTREMITIES: No edema feet - Labs CBC & Chem 7: 07/14/21 06:12 07/14/21 17:09 Labs: Abnormal Lab Results - Last 24 Hours (Table) 07/14/21 07/14/21 Range/Units 06:12 06:12 Lymphocytes # 0.8 L (1.0-4.8) k/uL Potassium 3.0 L (3.5-5.1) mmol/L Chloride 110 H (98-107) mmol/L Creatinine 0.39 L (0.52-1.04) mg/dL Calcium 7.9 L (8.4-10.2) mg/dL Assessment and Plan (1) Decubitus ulcer Current Visit: Yes Status: Acute Code(s): L89.90 - PRESSURE ULCER OF UNSPECIFIED SITE, UNSPECIFIED STAGE SNOMED Code(s): 9571715156 (2) Urinary tract infection Current Visit: Yes Status: Acute Code(s): N39.0 - URINARY TRACT INFECTION, SITE NOT SPECIFIED SNOMED Code(s): 21031813 Plan: 1patient presented to hospital with confusion and weakness which is likely multifactorial possibly metabolic underlying UTI not entirely excluded likely from enteric gram-negative pathogen. 2patient with a unstageable sacral pressure ulcer with the black Esher but no evidence of any surrounding cellulitis waiting for surgical debridement on Wednesday per general surgery. 3 patient to continue with Rocephin 1 g daily while waiting for the culture to finalize. Time with Patient: Less than 30
[2021-07-14] MEDS: POTASSIUM CHLORIDE ER 20 MEQ TAB.ER PO SCH ×2 (20:17→21:38)
[2021-07-14] MEDS: PANTOPRAZOLE 40 MG TABLET PO SCH (20:18)
[2021-07-14] MEDS: ATORVASTATIN 20 MG TAB PO SCH (20:18)
[2021-07-15] MEDS: SODIUM CHLORIDE 0.9% 1,000 ML IV SCH ×2 (01:41→09:23)
[2021-07-15] MEDS: ENOXAPARIN 40 MG/0.4 ML SYRINGE SQ SCH (09:22)
[2021-07-15] MEDS: atenoloL 50 MG TAB PO SCH ×2 (09:22→20:31)
[2021-07-15] MEDS: OXYBUTYNIN 10 MG TAB.ER.24 PO SCH (09:22)
[2021-07-15] MEDS: DONEPEZIL 10 MG TAB PO SCH (09:22)
[2021-07-15] MEDS: MAGNESIUM SULFATE-D5W PMX 1 GM in DEXTROSE/WATER 1 100ML.BAG IVPB SCH ×2 (10:33→12:08)
--- NOTE | 2021-07-15 12:33 | P.PN ---
Progress Note - Text Progress Note Date: 07/15/21 Patient remained stable. We will plan for debridement of decubitus ulcer in the a.m.
[2021-07-15] MEDS: POTASSIUM CITRATE 10 MEQ TABLET.ER PO SCH ×2 (13:00→17:52)
--- NOTE | 2021-07-15 19:06 | P.PN ---
Subjective Progress Note Date: 07/15/21 This is an 80-year-old female admitted with increasing weakness, confusion, dehydration, possible acute UTI, sacral pressure ulcer and multiple other medical issues. Maintained on IV antibiotics as per infectious disease. After for debridement on Wednesday. Afebrile, normal WBC, maintaining O2 sats in the 90s on room air. Potassium 3, renal function stable. 07/15/2021 maintained on Rocephin, gentle IV fluid hydration. Afebrile. Potassium supplemented yesterday, follow-up labs ordered. Maintaining O2 sats in the 90s on 2 L nasal cannula. Denies chest pain, palpitations or shortness of breath. Debridement scheduled for tomorrow. Objective - Vital Signs Vital signs: Vital Signs Temp 97.8 F 07/15/21 14:00 Pulse 64 07/15/21 14:00 Resp 16 07/15/21 14:00 BP 121/64 07/15/21 14:00 Pulse Ox 95 07/15/21 14:00 Intake & Output 07/15/21 07/15/21 07/16/21 06:59 18:59 06:59 Other: # Voids 2 2 # Bowel Movements 1 - Exam PHYSICAL EXAM: VITAL SIGNS: [As above] GENERAL: Sitting up in bed, no acute distress, alert and oriented to person and place. HEENT: Conjunctivae normal. eyes normal. Oral mucosa dry NECK: Supple,No JVD. CARDIOVASCULAR: S1, S2 regular. No murmur RESPIRATION: Breath sounds diminished in the bases. No rhonchi or crackles. No b ronchial breathing. ABDOMEN: Soft, nontender . No guarding. no masses palpable. Positive bowel malissa nds. LEGS: No edema. no swelling PSYCHIATRY: Alert and oriented X3, mood and affect normal. NERVOUS SYSTEM: Cranial N 2-12 grossly normal. Moves all 4 limbs. Diffuse weakness No focal deficits. Strength and sensation grossly intact. Skin: Warm and dry, no rash. Unstageable sacral pressure ulcer, black eschar without drainage or redness - Labs CBC & Chem 7: 07/14/21 06:12 07/14/21 17:09 Assessment and Plan Assessment: Altered mental status, possibly secondary to worsening dementia, in a patient with advanced dementia, possibly vascular dementia, possible component of metabolic encephalopathy secondary to dehydration as well as possible UTI Mild dehydration, secondary to the above Sacral decubitus ulcer unstageable Gastroesophageal reflux disease Hyperlipidemia Plan: Continue on current medication regime ,monitoring and symptomatic treatment. Repeat potassium level ordered . IV fluids discontinued. Local wound care/ IV antibiotics as per infectious disease. Debridement scheduled for tomorrow. PT/OT with ECF at discharge. The impression and plan of care has been dictated as directed. : I performed a history and examination of this patient, discussed the same with the dictator. I agree with the dictator's note ,documented as a scribe. Any additional findings or plans will be noted.
[2021-07-15] MEDS: PANTOPRAZOLE 40 MG TABLET PO SCH (20:31)
[2021-07-15] MEDS: ATORVASTATIN 20 MG TAB PO SCH (20:31)
[2021-07-16] MEDS: POTASSIUM CITRATE 10 MEQ TABLET.ER PO SCH ×3 (08:08→18:28)
[2021-07-16] MEDS: DONEPEZIL 10 MG TAB PO SCH (08:08)
[2021-07-16] MEDS: OXYBUTYNIN 10 MG TAB.ER.24 PO SCH (08:13)
[2021-07-16] MEDS: atenoloL 50 MG TAB PO SCH ×2 (08:13→22:21)
[2021-07-16] MEDS: ENOXAPARIN 40 MG/0.4 ML SYRINGE SQ SCH (08:14)
[2021-07-16 10:46] LABS: African American GFR (CKD) 124.5 (60.0-200.0); Anion Gap 11.7 mmol/L (10.00-18.00); BUN/Creat Ratio 22.33 Ratio (12.00-20.00); Blood Urea Nitrogen 6.7 mg/dL (9.0-27.0); Calcium 7.9 mg/dL (8.7-10.3); Carbon Dioxide 19.3 mmol/L (20.0-27.5); Magnesium 2.2 mg/dL (1.5-2.4); Non-African American GFR(CKD) 107.4 (60.0-200.0); Potassium 4.1 mmol/L (3.5-5.5)
[2021-07-16 12:10] LABS: Basophils # (A) 0.02 X 10*3/uL (0.00-0.10); Basophils % (A) 0.2 %; Eosinophils # (A) 0.15 X 10*3/uL (0.04-0.35); Eosinophils % (A) 1.8 %; HCT 39.6 % (37.2-46.3); Immature Grans, Automated 0.5 %; Lymphocytes # (A) 0.95 X 10*3/uL (0.90-5.00); Lymphocytes % (A) 11.2 %; MCH 27.5 pg (27.0-32.0); MCHC 30.3 g/dL (32.0-37.0); MCV 90.6 fL (80.0-97.0); Monocytes # (A) 0.79 X 10*3/uL (0.20-1.00); Monocytes % (A) 9.3 %; NRBC Per 100 WBC 0 /100 WBCS (0.0-0.0); Neutrophils # (A) 6.55 X 10*3/uL (1.80-7.70); Platelet Count 143 X 10*3/uL (140-440); RBC 4.37 X 10*6/uL (4.10-5.20); RDW 14.2 % (11.5-14.5)
--- NOTE | 2021-07-16 15:36 | P.PN ---
Subjective Progress Note Date: 07/16/21 This is an 80-year-old female admitted with increasing weakness, confusion, dehydration, possible acute UTI, sacral pressure ulcer and multiple other medical issues. Maintained on IV antibiotics as per infectious disease. After for debridement on Wednesday. Afebrile, normal WBC, maintaining O2 sats in the 90s on room air. Potassium 3, renal function stable. 07/15/2021 maintained on Rocephin, gentle IV fluid hydration. Afebrile. Potassium supplemented yesterday, follow-up labs ordered. Maintaining O2 sats in the 90s on 2 L nasal cannula. Denies chest pain, palpitations or shortness of breath. Debridement scheduled for tomorrow. 07/16/2021 scheduled for debridement today. Afebrile, normal WBC.VSS. Objective - Vital Signs Vital signs: Vital Signs Temp 97.6 F 07/16/21 11:34 Pulse 77 07/16/21 11:34 Resp 18 07/16/21 11:34 BP 131/77 07/16/21 11:34 Pulse Ox 97 07/16/21 11:34 Intake & Output 07/15/21 07/16/21 07/16/21 18:59 06:59 18:59 Other: # Voids 2 2 # Bowel Movements 1 - Exam PHYSICAL EXAM: VITAL SIGNS: [As above] GENERAL: Sitting up in bed, no acute distress, alert and oriented to person and place. HEENT: Conjunctivae normal. eyes normal. Oral mucosa dry NECK: Supple,No JVD. CARDIOVASCULAR: S1, S2 regular. No murmur RESPIRATION: Breath sounds diminished in the bases. No rhonchi or crackles. No bronchial breathing. ABDOMEN: Soft, nontender . No guarding. no masses palpable. Positive bowel sounds. LEGS: No edema. no swelling PSYCHIATRY: Alert and oriented X3, mood and affect normal. NERVOUS SYSTEM: Cranial N 2-12 grossly normal. Moves all 4 limbs. Diffuse weakness No focal deficits. Strength and sensation grossly intact. Skin: Warm and dry, no rash. Unstageable sacral pressure ulcer, black eschar without drainage or redness - Labs CBC & Chem 7: 07/16/21 04:49 07/16/21 04:49 Labs: Abnormal Lab Results - Last 24 Hours (Table) 07/16/21 07/16/21 Range/Units 04:49 04:49 MCHC 30.3 L (32.0-37.0) g/dL Carbon Dioxide 19.3 L (20.0-27.5) mmol/L BUN 6.7 L (9.0-27.0) mg/dL Creatinine 0.3 L (0.6-1.5) mg/dL BUN/Creatinine Ratio 22.33 H (12.00-20.00) Ratio Calcium 7.9 L (8.7-10.3) mg/dL Assessment and Plan Assessment: Altered mental status, possibly secondary to worsening dementia, in a patient with advanced dementia, possibly vascular dementia, possible component of metabolic encephalopathy secondary to dehydration as well as possible UTI Mild dehydration, secondary to the above Sacral decubitus ulcer unstageable Gastroesophageal reflux disease Hyperlipidemia Plan: Continue on current medication regime ,monitoring and symptomatic treatme nt. Debridement today. Maintain Local wound care/ IV antibiotics as per infectious disease. PT/OT with ECF at discharge. The impression and plan of care has been dictated as directed. : I performed a history and examination of this patient, discussed the same with the dictator. I agree with the dictator's note ,documented as a scribe. Any additional findings or plans will be noted.
[2021-07-16] MEDS ORDERED: fentaNYL (PF) 50 MCG/ML 2 ML AMP ONE (18:53)
[2021-07-16] MEDS ORDERED: MIDAZOLAM 2 MG/2 ML VIAL ONE (18:53)
[2021-07-16] MEDS ORDERED: PROPOFOL 10 MG/ML 20 ML VIAL IV ONE (18:53)
[2021-07-16] MEDS ORDERED: KETAMINE 10 MG/ML 20 ML VIAL ONE (18:53)
[2021-07-16] MEDS ORDERED: LIDOCAINE 1% INJ 10MG/ML (20 ML MDV) ONE (18:53)
[2021-07-16] MEDS ORDERED: IV FLUID CONTINUATION 900 ML IV ONE (19:10)
--- NOTE | 2021-07-16 19:22 | P.OP ---
Date of Procedure: 07/16/21 Preoperative Diagnosis: Decubitus ulcer Postoperative Diagnosis: Sacral decubitus ulcer Procedure(s) Performed: Debridement of sacral decubitus ulcer Anesthesia: MAC Surgeon: Amilcar Hartman Pathology: other (Decubitus ulcer) Condition: stable Disposition: PACU Description of Procedure: The patient's placed on the operating room table in the lateral position. She received IV sedation. Patient has sacral decubitus ulcer. The ulcer measured approximately 15 cm in length and 5 cm in width it was located right over her coccyx. There was necrotic skin and fat. This area was sharply debrided with a 15 blade scalpel and then left cautery was used for hemostasis. The wound was then packed with dry Kerlix. Patient top she will well. She sent to recovery in stable condition.
[2021-07-16] MEDS: ATORVASTATIN 20 MG TAB PO SCH (22:21)
[2021-07-16] MEDS: PANTOPRAZOLE 40 MG TABLET PO SCH (22:21)
[2021-07-17] MEDS ORDERED: ACETAMINOPHEN TAB 325 MG TAB PO PRN (08:02)
[2021-07-17 09:11] LABS: HGB 13.6 gm/dL (11.4-16.0); Hypochromasia Marked; MCH 28.3 pg (25.0-35.0); MCV 91.3 fL (80.0-100.0); Mean Platelet Volume 8.7; Platelet Count 207 k/uL (150-450); RBC 4.82 m/uL (3.80-5.40); RDW 14.5 % (11.5-15.5); WBC 9.1 k/uL (3.8-10.6)
[2021-07-17 09:20] LABS: African American GFR (CKD) >90 (>60 ml/min/1.73 sqM); Anion Gap 9 mmol/L; Blood Urea Nitrogen 9 mg/dL (7-17); Calcium 8.4 mg/dL (8.4-10.2); Carbon Dioxide 25 mmol/L (22-30); Chloride 106 mmol/L (98-107); Glucose 93 mg/dL (74-99); Non-African American GFR(CKD) >90 (>60 ml/min/1.73 sqM); Potassium 4.6 mmol/L (3.5-5.1); Sodium 140 mmol/L (137-145)
[2021-07-17] MEDS: DONEPEZIL 10 MG TAB PO SCH (11:01)
[2021-07-17] MEDS: atenoloL 50 MG TAB PO SCH ×2 (11:01→19:44)
[2021-07-17] MEDS: OXYBUTYNIN 10 MG TAB.ER.24 PO SCH (11:01)
[2021-07-17] MEDS: POTASSIUM CITRATE 10 MEQ TABLET.ER PO SCH ×3 (11:01→18:19)
[2021-07-17] MEDS: ENOXAPARIN 40 MG/0.4 ML SYRINGE SQ SCH (11:02)
[2021-07-17] MEDS ORDERED: traMADol 50 MG TAB PO PRN (14:46)
--- NOTE | 2021-07-17 14:51 | P.PN ---
Subjective Progress Note Date: 07/17/21 This is an 80-year-old female admitted with increasing weakness, confusion, dehydration, possible acute UTI, sacral pressure ulcer and multiple other medical issues. Maintained on IV antibiotics as per infectious disease. After for debridement on Wednesday. Afebrile, normal WBC, maintaining O2 sats in the 90s on room air. Potassium 3, renal function stable. 07/15/2021 maintained on Rocephin, gentle IV fluid hydration. Afebrile. Potassium supplemented yesterday, follow-up labs ordered. Maintaining O2 sats in the 90s on 2 L nasal cannula. Denies chest pain, palpitations or shortness of breath. Debridement scheduled for tomorrow. 07/16/2021 scheduled for debridement today. Afebrile, normal WBC.VSS. 07/17/2021 status post sacral debridement. Tolerated procedure well. Reports tenderness, sitting on air cushion. Ibarra inserted secondary to location of the wound. Diet intake fair, but drinking ensure. Denies chest pain, palpitations or shortness of breath. Afebrile. Objective - Vital Signs Vital signs: Vital Signs Temp 97.6 F 07/17/21 13:47 Pulse 90 07/17/21 13:47 Resp 18 07/17/21 13:47 BP 161/85 07/17/21 13:47 Pulse Ox 95 07/17/21 13:47 Intake & Output 07/16/21 07/17/21 07/17/21 18:59 06:59 18:59 Intake Total 100 360 Output Total 405 Balance -305 360 Weight 62.142 kg Intake: IV 100 Oral 360 Output: Urine 400 Estimated Blood Loss 5 Other: Voiding Method Indwelling Catheter Diaper Incontinent # Voids 0 # Bowel Movements 1 1 - Exam PHYSICAL EXAM: VITAL SIGNS: [As above] GENERAL: Sitting up in bed, no acute distress, alert and oriented to person and place. HEENT: Conjunctivae normal. eyes normal. mmm. NECK: Supple,No JVD. CARDIOVASCULAR: S1, S2 regular. No murmur RESPIRATION: Breath sounds diminished in the bases. No rhonchi or crackles. No bronchial breathing. ABDOMEN: Soft, nontender . No guarding. no masses palpable. Positive bowel sounds. LEGS: No edema. no swelling PSYCHIATRY: Alert and oriented X3, mood and affect normal. NERVOUS SYSTEM: Cranial N 2-12 grossly normal. Moves all 4 limbs. Diffuse weakness No focal deficits. Strength and sensation grossly intact. Skin: Warm and dry, no rash. sacral pressure ulcer dressing clean dry and intact - Labs CBC & Chem 7: 07/17/21 08:37 07/17/21 08:37 Labs: Abnormal Lab Results - Last 24 Hours (Table) 07/17/21 Range/Units 08:37 Creatinine 0.40 L (0.52-1.04) mg/dL Assessment and Plan Assessment: Altered mental status, possibly secondary to worsening dementia, in a patient with advanced dementia, possibly vascular dementia, possible component of metabolic encephalopathy secondary to dehydration as well as possible UTI Mild dehydration, secondary to the above Sacral decubitus ulcer unstageable, status post debridement Gastroesophageal reflux disease Hyperlipidemia Plan: Continue on current medication regime ,monitoring and symptomatic treatment. Pain management . Turn every 2 hours. Wound care team consulted. Maintain Local wound care/ IV antibiotics as per infectious disease. PT/OT with ECF at discharge. The impression and plan of care has been dictated as directed. : I performed a history and examination of this patient, discussed the same with the dictator. I agree with the dictator's note ,documented as a scribe. Any additional findings or plans will be noted.
--- NOTE | 2021-07-17 16:08 | P.PN ---
Subjective Progress Note Date: 07/17/21 CHIEF COMPLAINT: Sacral decubitus ulcer HISTORY OF PRESENT ILLNESS: Patient is status post debridement of sacral decubitus ulcer. Postop day #1. She reports her pain is controlled. Denies any nausea vomiting. She's afebrile. WBC is 8.5 Patient seen and examined with Dr. morales PHYSICAL EXAM: VITAL SIGNS: Reviewed. GENERAL: Well-developed in no acute distress. HEENT: No sclera icterus. Extraocular movements grossly intact. Moist buccal mucosa. Head is atraumatic, normocephalic. ABDOMEN: Soft. Nondistended. Nontender. NEUROLOGIC: Alert and oriented. Cranial nerves II through XII grossly intact. ASSESSMENT: 1. Sacral decubitus ulcer status post debridement PLAN: -Consult wound care service for local wound care -Continue supportive care -Antibiotics per ID service -Anticipate discharge possibly tomorrow Physician Manuscripts Curator note has been reviewed by physician. Signing provider agrees with the documented findings, assessment, and plan of care. Objective - Vital Signs Vital signs: Vital Signs Temp 97.6 F 07/17/21 13:47 Pulse 90 07/17/21 13:47 Resp 18 07/17/21 13:47 BP 161/85 07/17/21 13:47 Pulse Ox 95 07/17/21 13:47 Intake & Output 07/16/21 07/17/21 07/17/21 18:59 06:59 18:59 Intake Total 100 360 Output Total 405 Balance -305 360 Weight 62.142 kg 62.142 kg Intake: IV 100 Oral 360 Output: Urine 400 Estimated Blood Loss 5 Other: Voiding Method Indwelling Catheter Diaper Incontinent # Voids 0 # Bowel Movements 1 1 - Labs CBC & Chem 7: 07/17/21 08:37 07/17/21 08:37 Labs: Abnormal Lab Results - Last 24 Hours (Table) 07/17/21 Range/Units 08:37 Creatinine 0.40 L (0.52-1.04) mg/dL
[2021-07-17] MEDS: ATORVASTATIN 20 MG TAB PO SCH (19:44)
[2021-07-17] MEDS: PANTOPRAZOLE 40 MG TABLET PO SCH (19:44)
[2021-07-18] MEDS: POTASSIUM CITRATE 10 MEQ TABLET.ER PO SCH ×2 (09:14→14:40)
[2021-07-18] MEDS: atenoloL 50 MG TAB PO SCH (09:14)
[2021-07-18] MEDS: OXYBUTYNIN 10 MG TAB.ER.24 PO SCH (09:14)
[2021-07-18] MEDS: DONEPEZIL 10 MG TAB PO SCH (09:14)
[2021-07-18] MEDS: ENOXAPARIN 40 MG/0.4 ML SYRINGE SQ SCH (09:15)
[2021-07-18] MEDS ORDERED: COLLAGENASE 250 UNIT/GM OINTMENT 30 GM TUBE TOPICAL SCH (09:30)
--- NOTE | 2021-07-18 09:37 | P.CONS ---
History of Present Illness - Reason for Consult Consult date: 07/18/21 wound care - History of Present Illness This is an 81-year-old female being seen on [facility] for a nonhealing ulceration to the coccyx and left heel. Patient underwent a surgical debridement with Dr. Hartman for the coccyx unstageable pressure ulcer. Ulcer measures approximately 15 x 5 cm. With significant amount of necrotic tissue and minimal granulation seen within the wound bed. She states that the ulceration has been there for a few months. Stating that it has progressively gotten worse. Patient also has a left heel pressure ulceration with eschar. His past medical history significant for dementia, GERD, hyperlipidemia, hyper tension, left breast cancer. Denies diabetes is a lifelong nonsmoker. Review Of Systems: Constitutional: No fever, no chills, no night sweats. No weight change. No weakness, fatigue or lethargy. No daytime sleepiness. Integumentary:reports wounds, no lesions. No rash or pruritus. No unusual bruising. No change in hair or nails. Physical exam: General Appearance: Alert, cooperative, no distress, appears stated age. Skin: See HPI all other Skin color, texture, tugor normal, no rashes or lesions. Neurologic: Alert oriented x3 Assessment: 1. Unstageable pressure ulcer to coccyx 2. Unstable pressure ulcer to left heel Plan: 1.Coccyx: Apply Santyl, saline moistened gauze, dry gauze, sacral border foam. Left heel ulceration apply Santyl, feeling was gauze, dry gauze rolled gauze and secure with paper tape. 2. Turn patient every 2 hours. Utilize 8 year. She when sitting. 3. Patient would benefit from advanced wound care and wound care center. We'll be happy to see her in the wound center upon discharge. Thank you for the consultation any questions contact the wound care center DNP note has been reviewed and discussed with Dr. Koch and the impression and plan of care has been directed as dictated. Past Medical History Past Medical History: Cancer, Dementia, Eye Disorder, GERD/Reflux, Hyperlipide montez, Hypertension, Memory Impairment, Syncope Additional Past Medical History / Comment(s): HX LT BREAST CA. PAST HX OF SYNCOPE, STATES MEMORY PROBLEMS, rt cataract. alzhemiers History of Any Multi-Drug Resistant Organisms: None Reported Past Surgical History: Breast Surgery, Section, Hysterectomy, Pacemaker, Tonsillectomy Additional Past Surgical History / Comment(s): C-S X3. LT BREAST LUMPECTOMY. Past Anesthesia/Blood Transfusion Reactions: No Reported Reaction Type of Cardiac Device: Permanent Pacemaker Device Placement Date:: 05-25-16 [employer] Past Psychological History: No Psychological Hx Reported Smoking Status: Never smoker Past Alcohol Use History: None Reported Past Drug Use History: None Reported - Past Family History Father History Unknown: Yes Family Medical History: Eye Disorder Mother History Unknown: Yes Family Medical History: No Reported History Medications and Allergies Home Medications Medication Instructions Recorded Confirmed Type Donepezil HCl 10 mg PO DAILY 03/13/15 07/11/21 History Omeprazole 20 mg PO HS 03/13/15 07/11/21 History Tolterodine ER [Detrol LA] 4 mg PO DAILY 03/13/15 07/11/21 History atenoloL [Atenolol] 50 mg PO BID 03/13/15 07/11/21 History Simvastatin [Zocor] 40 mg PO HS 07/11/21 07/11/21 History Allergies Allergy/AdvReac Type Severity Reaction Status Date / Time influenza virus vaccine, Allergy Rash/Hives Verified 07/11/21 12:02 specific [influenza virus vacc,specific] Penicillins Allergy Rash/Hives Verified 07/11/21 12:02 Physical Exam Vitals: Vital Signs Temp Pulse Resp BP Pulse Ox 07/18/21 02:25 98.1 F 62 16 146/80 95 07/17/21 19:47 97.9 F 65 16 122/73 95 07/17/21 13:47 97.6 F 90 18 161/85 95 Intake and Output 07/17/21 07/18/21 07/18/21 22:59 06:59 14:59 Intake Total 180 Output Total 675 Balance -675 180 Intake: Oral 180 Output: Urine 675 Other: Voiding Method Indwelling Catheter # Bowel Movements 1 Results CBC & Chem 7: 07/17/21 08:37 07/17/21 08:37 Labs: Abnormal Lab Results - Last 24 Hours (Table) 07/17/21 Range/Units 08:37 Creatinine 0.40 L (0.52-1.04) mg/dL Assessment and Plan (1) Pressure injury of coccygeal region, unstageable Current Visit: Yes Status: Acute Code(s): L89.150 - PRESSURE ULCER OF SACRAL REGION, UNSTAGEABLE SNOMED Code(s): 910859564 (2) Unstageable pressure ulcer of left heel Current Visit: Yes Status: Acute Code(s): L89.620 - PRESSURE ULCER OF LEFT HEEL, UNSTAGEABLE SNOMED Code(s): 367502207
--- NOTE | 2021-07-18 10:46 | P.DS ---
Providers Date of admission: 07/11/21 14:55 Attending physician: Edwin Frausto Consults: 07/11/21 15:27 Consult Physician Routine Consulting Provider: Chantelle Dumas Consult Reason/Comments: UTI Do you want consulting provider notified?: Yes 07/12/21 15:19 Consult Physician Routine Consulting Provider: Amilcar Hartman Consult Reason/Comments: sacral pressure ulcer for debridment and deep cultures Do you want consulting provider notified?: Yes Primary care physician: Edwin Frausto Hospital Course: diagnoses: -Altered mental status, mostly secondary to worsening dementia, in a patient with advanced and Alzheimer dementia, possibly vascular dementia, possible component of metabolic encephalopathy secondary to dehydration as well as possible UTI -Mild dehydration, secondary to the above -Sacral decubitus ulcer unstageable, status post debridement. measured about 15 cm in length x 5 cm in width -Gastroesophageal reflux disease -Possible urinary tract infection on admission, urine culture is negative -Hyperlipidemia Hospital course: This is a pleasant 81 years old female with past medical history of dementia on treatment, GERD, hypertension, hyperlipidemia, history of left breast cancer and syncope. She is status post pacemaker. Resistance with altered mental status with urinary tract infection. Patient was treated with IV antibiotics with infectious disease team consult, also patient found to have sacral pressure ulcer, surgery team were consulted and they did surgical debridement in the operating room. Pressure ulcer measured about 15 cm in length x 5 cm in width, where necrotic skin and fat were removed. Today patient is alert awake comfortable not in distress, she knows she is in the hospital and she follows commands appropriately, she has some memory impairment but she feels and she wants to be discharged. She denies chest pain or dyspnea. No abdominal pain. No nausea vomiting. She tolerates diet with encouragement. She is hemodynamically stable and afebrile. CBC is normal as well as BMP from yesterday. Patient was cleared for discharge by ID on surgery team Problems and management plan were discussed with the patient and he verbalized understanding and acceptance Patient was found stable and can be discharged home however he needs follow-up as an outpatient. Patient was instructed to follow up with PCP Dr. Frausto within one week and patient agrees long-term prognosis is poor and we might recommend palliative consult as an outpatient We recommend to check lipid panel in 1-2 months Physical exam Gen: patient is a AAOx1-partial2, no distress. Generalized weakness CVS: S1-S2, RRR, no murmur Lungs: B/L CTA, no wheezing Abdomen: soft, no distention, no tenderness, positive bowel sounds Extremity: no leg edema or induration Time spent more than 35 minutes Plan - Discharge Summary New Discharge Prescriptions: No Action Tolterodine ER [Detrol LA] 4 mg PO DAILY Omeprazole 20 mg PO HS Donepezil HCl 10 mg PO DAILY atenoloL [Atenolol] 50 mg PO BID Simvastatin [Zocor] 40 mg PO HS Discharge Medication List Donepezil HCl 10 mg PO DAILY 03/13/15 [History] Omeprazole 20 mg PO HS 03/13/15 [History] Tolterodine ER [Detrol LA] 4 mg PO DAILY 03/13/15 [History] atenoloL [Atenolol] 50 mg PO BID 03/13/15 [History] Follow up Appointment(s)/Referral(s): Edwin Frausto DO [Primary Care Provider] - 1 Week (After discharge from [facility]) [facility] [NON-STAFF] - 1 Week [facility], [NON-STAFF] - As Needed Activity/Diet/Wound Care/Special Instructions: Liberty cbc,bmp in 3 days Discharge Disposition: TRANSFER TO SNF/ECF
[2021-07-18 14:25] VITALS: BP 146/80; PULSE 62; RESP 16; TEMP 98.1
--- NOTE | 2021-07-18 14:32 | CDI ---
Documentation Clarification Form Date: 07/18/2021 02:21:14 PM From: Carmelita Calderon RN CCDS Admit Date: 07/11/2021 02:55:00 PM Patient Name: Abigail Golden Visit Number: [id number] Discharge Date: ATTENTION: The Clinical Documentation Specialists (CDI) and [facility] Coding Staff appreciate your assistance in clarifying documentation. Please respond to the clarification below the line at the bottom and electronically sign. The CDI & [facility] Coding staff will review the response and follow-up if needed. Please note: Queries are made part of the Legal Health Record. If you have any questions, please contact the author of this message via ITS. Dr. Amilcar Hartman A debridement is documented [insert date, location]. Additional clarification regarding the procedure is requested. History/Risk Factors: 80-year-old female presents to the ED with altered mental status. Medical History: Dementia, HTN and Pacemaker. 07/12, History & Physical. Clinical Indicators: Post operative diagnosis: Sacral decubitus ulcer Procedure Debridement of sacral decubitus ulcer Ulcer measured 15cm length and 5cm in width. Necrotic skin and fat. This area was sharply debrided with a 15 blade scalpel and then cautery was used for hemostasis. Treatment: Debridement of sacral decubitus ulcer 07/16 Please clarify the type of procedure performed: [ xxxx ] Excisional debridement (the removal of necrotic, devitalized tissue or slough by means of cutting away of tissue) [ ] Non-excisional debridement (the removal of necrotic, devitalized tissue or slough by means of flushing, brushing, or washing. (Irrigation) [ ] Other; please specify [ ] Unable to determine Five elements required for accurate and compliant documentation of a debridement: Technique used (e.g., excisional, excised, cutting, brushing, jet lavage etc.) Instrument(s) used (e.g., scalpel, curette, etc.) Nature of the tissue removed (e.g., necrotic, devitalized tissues, non-viable tissue, etc.) Appearance and size of the wound (e.g., down to fresh bleeding tissue, 7cm x 10cm, etc.) Depth of the debridement* (e.g., skin, subcutaneous tissue, fascia, muscle, bone, etc.) (Template Last Revised: June 2020) MTDD
--- NOTE | 2021-07-18 14:59 | P.PN ---
Subjective Progress Note Date: 07/18/21 CHIEF COMPLAINT: Sacral decubitus ulcer HISTORY OF PRESENT ILLNESS: Patient is status post debridement of sacral decubitus ulcer. Postop day #2. Patient denies any pain. Denies any nausea or vomiting. Tolerating diet. She is afebrile. She was seen and evaluated by wound care service. They're planning discharge later today. Patient seen and examined with Dr. morales PHYSICAL EXAM: VITAL SIGNS: Reviewed. GENERAL: Well-developed in no acute distress. HEENT: No sclera icterus. Extraocular movements grossly intact. Moist buccal mucosa. Head is atraumatic, normocephalic. ABDOMEN: Soft. Nondistended. Nontender. NEUROLOGIC: Alert and oriented. Cranial nerves II through XII grossly intact. ASSESSMENT: 1. Sacral decubitus ulcer status post debridement PLAN: -Continue local wound care per wound care service recommendations -Continue supportive care -Antibiotics per ID service -Patient can be discharged from surgical standpoint when cleared medically -Surgical service will sign off. Please call with any questions or concerns. Physician Rn Manager note has been reviewed by physician. Signing provider agrees with the documented findings, assessment, and plan of care. Objective - Vital Signs Vital signs: Vital Signs Temp 98.1 F 07/18/21 02:25 Pulse 62 07/18/21 02:25 Resp 16 07/18/21 02:25 BP 146/80 07/18/21 02:25 Pulse Ox 95 07/18/21 02:25 Intake & Output 07/17/21 07/18/21 07/18/21 18:59 06:59 18:59 Intake Total 360 180 Output Total 675 200 Balance 360 -675 -20 Weight 62.142 kg Intake: Oral 360 180 Output: Urine 675 200 Other: Voiding Method Diaper Indwelling Catheter Indwelling Catheter Incontinent # Bowel Movements 1 1 - Labs CBC & Chem 7: 07/17/21 08:37 07/17/21 08:37
--- NOTE | 2021-07-18 15:40 | P.PN ---
Subjective Progress Note Date: 07/16/21 Principal diagnosis: Possible UTI and sacral pressure ulcer Patient is 80 year female has been brought into the hospital for weakness and confusion noticed to have some dehydration and possible UTI and a sacral pressure ulcer. On today's evaluation that is 07/16/2021, the patient is afebrile, the patient is breathing comfortably on room air, the patient denies chest pain shortness of breath or cough no nausea no vomiting no abdominal pain or diarrhea Objective - Vital Signs Vital signs: Vital Signs Temp 97.6 F 07/16/21 11:34 Pulse 77 07/16/21 11:34 Resp 18 07/16/21 11:34 BP 131/77 07/16/21 11:34 Pulse Ox 97 07/16/21 11:34 Intake & Output 07/15/21 07/16/21 07/16/21 18:59 06:59 18:59 Other: # Voids 2 2 # Bowel Movements 1 - Exam GENERAL DESCRIPTION: An elderly female lying in bed in no distress RESPIRATORY SYSTEM: Unlabored breathing , decreased breath sounds at bases HEART: S1 S2 regular rate and rhythm , ABDOMEN: Soft , no tenderness EXTREMITIES: No edema feet - Labs CBC & Chem 7: 07/17/21 08:37 07/17/21 08:37 Labs: Abnormal Lab Results - Last 24 Hours (Table) 07/16/21 07/16/21 Range/Units 04:49 04:49 MCHC 30.3 L (32.0-37.0) g/dL Carbon Dioxide 19.3 L (20.0-27.5) mmol/L BUN 6.7 L (9.0-27.0) mg/dL Creatinine 0.3 L (0.6-1.5) mg/dL BUN/Creatinine Ratio 22.33 H (12.00-20.00) Ratio Calcium 7.9 L (8.7-10.3) mg/dL Assessment and Plan (1) Decubitus ulcer Current Visit: Yes Status: Acute Code(s): L89.90 - PRESSURE ULCER OF UNSPECIFIED SITE, UNSPECIFIED STAGE SNOMED Code(s): 4420446572 (2) Urinary tract infection Current Visit: Yes Status: Acute Code(s): N39.0 - URINARY TRACT INFECTION, SITE NOT SPECIFIED SNOMED Code(s): 52997457 Plan: 1patient presented to hospital with confusion and weakness which is likely multifactorial possibly metabolic underlying UTI not entirely excluded likely from enteric gram-negative pathogen. 2patient with a unstageable sacral pressure ulcer with the black Esher but no evidence of any surrounding cellulitis waiting for surgical debridement scheduled for this evening by general surgery 3 patient is currently covered with Rocephin 1 g daily Time with Patient: Less than 30
--- NOTE | 2021-07-18 15:41 | P.PN ---
Subjective Progress Note Date: 07/15/21 Principal diagnosis: Possible UTI and sacral pressure ulcer Patient is 80 year female has been brought into the hospital for weakness and confusion noticed to have some dehydration and possible UTI and a sacral pressure ulcer. On today's evaluation that is 07/15/2021, the patient remains to be afebrile, the patient is breathing comfortably on room air, the patient denies chest pain shortness of breath or cough, the patient denies nausea no vomiting no abdominal pain or diarrhea Objective - Vital Signs Vital signs: Vital Signs Temp 97.5 F L 07/15/21 07:06 Pulse 60 07/15/21 07:06 Resp 18 07/15/21 07:06 BP 152/68 07/15/21 07:06 Pulse Ox 98 07/15/21 07:06 Intake & Output 07/14/21 07/15/21 07/15/21 18:59 06:59 18:59 Weight 62.142 kg Other: # Voids 2 2 # Bowel Movements 1 - Exam GENERAL DESCRIPTION: An elderly female lying in bed in no distress RESPIRATORY SYSTEM: Unlabored breathing , decreased breath sounds at bases HEART: S1 S2 regular rate and rhythm , ABDOMEN: Soft , no tenderness EXTREMITIES: No edema feet - Labs CBC & Chem 7: 07/17/21 08:37 07/17/21 08:37 Labs: Abnormal Lab Results - Last 24 Hours (Table) 07/14/21 Range/Units 17:09 Potassium 3.1 L (3.5-5.1) mmol/L Assessment and Plan (1) Decubitus ulcer Current Visit: Yes Status: Acute Code(s): L89.90 - PRESSURE ULCER OF UNSPECIFIED SITE, UNSPECIFIED STAGE SNOMED Code(s): 3034237603 (2) Urinary tract infection Current Visit: Yes Status: Acute Code(s): N39.0 - URINARY TRACT INFECTION, SITE NOT SPECIFIED SNOMED Code(s): 87845024 Plan: 1patient presented to hospital with confusion and weakness which is likely multifactorial possibly metabolic underlying UTI not entirely excluded likely from enteric gram-negative pathogen. 2patient with a unstageable sacral pressure ulcer with the black Esher but no evidence of any surrounding cellulitis waiting for surgical debridement scheduled for 07/16/2021 by general surgery at which time deep culture should be obtained 3 patient is currently covered with Rocephin 1 g daily Time with Patient: Less than 30
--- NOTE | 2021-07-18 15:43 | P.PN ---
Subjective Progress Note Date: 07/17/21 Principal diagnosis: Possible UTI and sacral pressure ulcer Patient is 80 year old female has been brought into the hospital for weakness and confusion noticed to have some dehydration and possible UTI and a sacral pressure ulcer. Patient is status post surgical debridement of the sacral pressure ulcer by general surgery no mention of any extension down to the bones and no cultures were done On today's evaluation that is 07/17/2021, the patient denies any fever or any chills, the patient is breathing comfortably on room air, the patient denies chest pain shortness of breath or cough, the patient denies nausea no vomiting no abdominal pain and no diarrhea has been reported by the nursing staff Objective - Vital Signs Vital signs: Vital Signs Temp 97.8 F 07/17/21 08:00 Pulse 61 07/17/21 08:00 Resp 17 07/17/21 08:00 BP 169/74 07/17/21 08:00 Pulse Ox 95 07/17/21 08:00 Intake & Output 07/16/21 07/17/21 07/17/21 18:59 06:59 18:59 Intake Total 100 360 Output Total 405 Balance -305 360 Weight 62.142 kg Intake: IV 100 Oral 360 Output: Urine 400 Estimated Blood Loss 5 Other: Voiding Method Indwelling Catheter Diaper Incontinent # Voids 0 # Bowel Movements 1 1 - Exam GENERAL DESCRIPTION: An elderly female lying in bed in no distress RESPIRATORY SYSTEM: Unlabored breathing , decreased breath sounds at bases HEART: S1 S2 regular rate and rhythm , ABDOMEN: Soft , no tenderness EXTREMITIES: No edema feet - Labs CBC & Chem 7: 07/17/21 08:37 07/17/21 08:37 Labs: Abnormal Lab Results - Last 24 Hours (Table) 07/17/21 Range/Units 08:37 Creatinine 0.40 L (0.52-1.04) mg/dL Assessment and Plan (1) Decubitus ulcer Current Visit: Yes Status: Acute Code(s): L89.90 - PRESSURE ULCER OF UNSPECIFIED SITE, UNSPECIFIED STAGE SNOMED Code(s): 1914971669 (2) Urinary tract infection Current Visit: Yes Status: Acute Code(s): N39.0 - URINARY TRACT INFECTION, SITE NOT SPECIFIED SNOMED Code(s): 18549990 Plan: 1patient presented to hospital with confusion and weakness which is likely mult ifactorial possibly metabolic underlying UTI not entirely excluded likely from enteric gram-negative pathogen. 2patient with a unstageable sacral pressure ulcer with no evidence of any surrounding cellulitis, the patient is status post surgical debridement however no deep culture had been done 3 patient may continue with Rocephin 1 g daily Time with Patient: Less than 30
--- NOTE | 2021-07-18 15:44 | P.PN ---
Subjective Progress Note Date: 07/18/21 Principal diagnosis: Possible UTI and sacral pressure ulcer Patient is 80 year old female has been brought into the hospital for weakness and confusion noticed to have some dehydration and possible UTI and a sacral pressure ulcer. Patient is status post surgical debridement of the sacral pressure ulcer by general surgery no mention of any extension down to the bones and no cultures were done On today's evaluation that is 07/18/2021, the patient remains to be afebrile, the patient is breathing comfortably on room air, the patient denies chest pain shortness of breath or cough, the patient denies nausea no vomiting no abdominal pain and denies any worsening pain to the sacral wound area Objective - Vital Signs Vital signs: Vital Signs Temp 98.1 F 07/18/21 02:25 Pulse 62 07/18/21 02:25 Resp 16 07/18/21 02:25 BP 146/80 07/18/21 02:25 Pulse Ox 95 07/18/21 02:25 Intake & Output 07/17/21 07/18/21 07/18/21 18:59 06:59 18:59 Intake Total 360 180 Output Total 675 Balance 360 -675 180 Weight 62.142 kg Intake: Oral 360 180 Output: Urine 675 Other: Voiding Method Diaper Indwelling Catheter Indwelling Catheter Incontinent # Bowel Movements 1 1 - Exam GENERAL DESCRIPTION: An elderly female lying in bed in no distress RESPIRATORY SYSTEM: Unlabored breathing , decreased breath sounds at bases HEART: S1 S2 regular rate and rhythm , ABDOMEN: Soft , no tenderness Sacral wound had did have a some slough tissue no significant surrounding swelling redness or any foul-smelling drainage EXTREMITIES: No edema feet - Labs CBC & Chem 7: 07/17/21 08:37 07/17/21 08:37 Assessment and Plan (1) Decubitus ulcer Current Visit: Yes Status: Acute Code(s): L89.90 - PRESSURE ULCER OF UNSPECIFIED SITE, UNSPECIFIED STAGE SNOMED Code(s): 1712056755 (2) Urinary tract infection Current Visit: Yes Status: Acute Code(s): N39.0 - URINARY TRACT INFECTION, SITE NOT SPECIFIED SNOMED Code(s): 30188123 Plan: 1patient presented to hospital with confusion and weakness which is likely multifactorial possibly metabolic underlying UTI not entirely excluded likely from enteric gram-negative pathogen. 2patient with a unstageable sacral pressure ulcer with no evidence of any surrounding cellulitis, the patient is status post surgical debridement however no deep culture had been done and surgical report did not mention any extension of the wound down to the bones, with no convincing evidence of any infection patient with no fever or elevated white count recommended discontinue Rocephin local wound to continue with Santyl keep the area off the pressure Time with Patient: Less than 30
== END 2021-07-18 17:35 | DRG 570 ==
LOC: EC 11:11 → 5NMEDONC 14:55 → 4SSUR 17:02
PROVIDERS: ADMIT Family Medicine; ATTEND Family Medicine
PROC: 0JBR0ZZ Excision of Left Foot Subcutaneous Tissue and Fascia, Open Approach (ICD-10-PCS; principal; 2021-07-16 16:00)
DX: L89.150 Pressure ulcer of sacral region, unstageable (principal); G93.41 Metabolic encephalopathy; N39.0 Urinary tract infection, site not specified; L89.620 Pressure ulcer of left heel, unstageable; R62.7 Adult failure to thrive; Z74.01 Bed confinement status; F02.80 Dementia in other diseases classified elsewhere, unspecified severity, without behavioral disturbance, psychotic disturbance, mood disturbance, and anxiety; G30.9 Alzheimer's disease, unspecified; E78.5 Hyperlipidemia, unspecified; E86.0 Dehydration; F01.50 Vascular dementia, unspecified severity, without behavioral disturbance, psychotic disturbance, mood disturbance, and anxiety; I10 Essential (primary) hypertension; K21.9 Gastro-esophageal reflux disease without esophagitis; Z79.899 Other long term (current) drug therapy; Z85.3 Personal history of malignant neoplasm of breast; Z90.710 Acquired absence of both cervix and uterus; Z95.0 Presence of cardiac pacemaker; Z90.89 Acquired absence of other organs; Z98.890 Other specified postprocedural states; Z88.7 Allergy status to serum and vaccine; H26.9 Unspecified cataract; Z88.0 Allergy status to penicillin
CPT/HCPCS: 36415; 71046; 72170; 80048; 80053; 81001; 83735; 84132; 85025; 85027; 87086; 96361; 96374; 99285